=== PATIENT | female | born 1970 | race Caucasian/White ===

== ENCOUNTER 2019-08-30 09:59 | Outpatient (CLI) | payer MEDICAID, SELFPAY | END 2019-08-30 10:00 | disposition home or self-care (01) | LOC: RAD 09-01 09:37 | PROVIDERS: Family Provider Nurse Practitioner Family; Visit Provider Otolaryngology | DX: J32.9 Chronic sinusitis, unspecified (principal); J02.0 Streptococcal pharyngitis; J34.2 Deviated nasal septum; J34.3 Hypertrophy of nasal turbinates; E04.1 Nontoxic single thyroid nodule | CPT/HCPCS: 99203; 99214 ==

== ENCOUNTER 2019-10-10 07:44 | Outpatient (CLI) | payer MEDICAID, SELFPAY ==
--- NOTE | 2019-10-10 08:00 | US_ITS ---
WS: [id number] THYROID ULTRASOUND HISTORY: right thyroid nodule COMPARISON: None available. Cystic and solid. Right lobe: 6.1 cm x 1.6 cm x 2.3 cm. Volume: 12.1 cm3. Moderately enlarged thyroid gland. Mildly coarsened echotexture. There is a complex cystic nodule mid and lower pole anteriorly. Greater than 50% cystic but there are septations present throughout with no increased vascularity. This complex cystic nodule measures 2.7 x 1.7 x 2.2 cm. There is an additio nal solid nodule in the superior thyroid measuring 1.2 x 1.0 x 1.0 cm. Left lobe: 5.6 cm x 1.7 cm x 1.6 cm. Volume: 8.0 cm3. Slightly enlarged gland is heterogeneous. There is an ill-defined slightly hypoechoic nodule in the m id gland measures 1.3 x 1.0 x 0.7 cm. No increased vascularity. Additional complex cyst inferiorly me asures 7 x 6 x 6 mm. Isthmus: 0.3 cm. Superficial ovoid hypoechoic nodule with a maximum diameter 7 mm. US/US thyroid [id number] IMPRESSION: 1. Bilateral thyroid nodules. Nodules are combination of mixed cystic and tesha d. The largest in the RIGHT thyroid is predominantly cystic with a few septatio ns which are nonvascular. Recommend follow-up thyroid ultrasound in 6-12 months . If these nodules increase in size biopsy should be obtained. 2. Mild thyromegaly.
--- NOTE | 2019-10-10 09:45 | CT_ITS ---
WS: [id number] CT PARANASAL SINUSES HISTORY: chronic sinusitis TECHNIQUE: Contiguous 2.5 mm axial images obtained through the sinuses. Images are reconstructed in s agittal and coronal planes. All CT scans at [facility] use at least one of these dose opt imization techniques: automated exposure control; mA and/or kV adjustment per patient size (includes targeted exams where dose is matched to clinical indication); or iterative reconstruction. DLP: 369.34 mGycm COMPARISON: None available. Frontal sinuses: Normal. Sphenoid sinus: Well aerated. Small amount mucoperiosteal thickening in the far lateral LEFT sphenoid sinus. Ethmoid sinuses: Prominent RIGHT air cell along the anterior, inferomedial orbit consistent with Argueta er cell. Causing very mild narrowing and slight medial displacement of the infundibulum. Maxillary sinus: Normal. Ostiomeatal unit: Mild narrowing of the ostomy units bilaterally. A small amount of increased soft ti ssue along the infundibula bilaterally. Slight displacement of the RIGHT infundibulum of the Alyssa c ell. Nasal septum is straight and midline. Fovea ethmoidalis depth 6 mm. Gillian gala is midline. CT/CT sinus wo con* [id number] IMPRESSION: 1. Minimal mucoperiosteal thickening in the far lateral LEFT sphenoid sinus. 2. Mild narrowing of the ostiomeatal complexes bilaterally. 3. Prominent RIGHT Alyssa cell causing mild narrowing of the RIGHT infundibulu m.
== END 2019-10-10 07:45 | disposition home or self-care (01) ==
LOC: RADWPI 07:47
PROVIDERS: Family Provider Nurse Practitioner Family; PCP Nurse Practitioner Family; Visit Provider Otolaryngology
DX: J32.9 Chronic sinusitis, unspecified (principal); E04.2 Nontoxic multinodular goiter
CPT/HCPCS: 70486; 76536

== ENCOUNTER 2019-10-24 19:53 | Emergency (ER) | payer MEDICAID, SELFPAY ==
[2019-10-24 19:54] VITALS: BP 143/84; PULSE 70; RESP 18; TEMP 37.1; O2SAT 97; BMI 44.6
--- NOTE | 2019-10-24 20:06 | XR_ITS ---
WS: [id number] CHEST XRAY TECHNIQUE: Portable chest. CLINICAL INFORMATION: cough COMPARISON: November 21, 2018 FINDINGS: Heart: Normal cardiac silhouette. Lungs: Lungs are clear. No consolidation or pleural effusion. Bones: Thoracic curve convex right. XR/XR chest 1V portable [id number] IMPRESSION: No acute chest findings
--- NOTE | 2019-10-24 20:06 | ECG_ITS ---
Measurements Intervals [place] Rate: 70 P: 35 MO: 126 QRS: 43 QRSD: 89 T: 21 QT: 381 QTc: [address] & T-WAVE ABNORMALITY Compared to ECG 11/23/2018 12:08:46 T-wave abnormality now present Electronically Signed On 10-26-2019 6:38:17 CDT by Goran Cruz M.D. [id number]
[2019-10-24] MEDS: aspirin 81 mg Chew Tablet 324 MG PO (20:15)
--- NOTE | 2019-10-24 20:20 | W.ED.CHESTPA ---
HPI - Chest Pain General: Chief Complaint: Chest Pain Stated Complaint: CHEST PAIN Time Seen by Provider: 10/24/19 20:05 History of Present Illness: HPI narrative: Crissy is a 49-year-old female who comes in complaining of intermittent chest tightness for 1 month. She states for the past 2 days the squeezing in her chest is been constant. She denies any other associated symptoms with this such as shortness of breath, diaphoresis, nausea/vomiting, syncope or near syncope. She is unaware of any eliciting factors or exacerbating or alleviating factors. She states the pain is been intermittent but again for the past 2 days the pain has been constant. Because of that not going away is why she sought medical attention today. Associated symptoms: Deny abdominal pain, diaphoresis, dyspnea, fever(s), nausea, palpitations, syncope or vomiting Review of Systems General: Reports: other (negative unless marked) Const: Denies: fever, chills, body aches, fatigue, malaise or diaphoresis Eyes: Denies: change in vision or blurry vision ENMT: Denies: throat pain, painful swallowing, hoarseness, ear pain, ear discharge, Change in hearing or nasal discharge Card: Reports: chest pain; Denies: palpitations, irregular heart rhythm, syncope, pre-syncope, shortness of breath on exertion or shortness of breath when lying down Resp: Denies: shortness of breath, productive cough, non-productive cough, wheezing, coughing up blood or chest congestion GI: Denies: abdominal pain, nausea, vomiting, vomiting blood, coffee grounds in vomit, diarrhea, constipation, cramping, blood in stool or black tarry stool : Denies: flank pain, painful urination, urinary frequency, urinary urgency, decreased urine ouput, urinary incontinence or blood in urine Musc: Denies: neck pain, back pain, extremity pain, extremity swelling, joint pain, joint swelling, joint warmth or joint stiffness Skin/Breast: Denies: rash, skin tenderness or yellow skin Neuro: Denies: headache, numbness in extremities, weakness in extremities, changes in sensation, lack of coordination, difficulty walking, dizziness, vertigo or confusion Endo: Denies: excessive thirst, tired all the time, cold intolerance, excessive sweating, flushing or hot flashes David/Lymph: Denies: easy bruising, easy bleeding, petechiae or enlarged lymph nodes All/Imm: Denies: hives, throat swelling, tongue swelling, facial swelling or acute wheezing PFSH ED PFSH: Medical History Chronic sinusitis Deviated septum Generalized anxiety disorder Major depressive disorder, recurrent, moderate Nasal turbinate hypertrophy Obesity Right thyroid nodule Surgical History History of appendectomy History of hysterectomy Family History Father Hypertension Heart attack Mother Heart attack Brother Asthma Denies family history of Anesthesia complication Bleeding disorder Social History Smoking and tobacco status: former smoker Second hand smoke exposure: No Alcohol intake: never Adopted: No Caregiver/support person: Yes Lives independently: Yes Household members: spouse Housing: House Marital status: service: No Current occupational status: disabled Current occupational exposures/hazards: No Pets and animals: No History of recent travel: No Sexually active: Yes Current gender identity: Female Kellen/Presybeterian: Yazdanism Special kellen needs: No Agree to transfusion: No Financial difficulty paying for basics: Decline to Answer Physical Exam Const: COMMON NORMALS: no apparent distress, oriented x3, no limitations, healthy appearing and well nourished EXAM LIMITATIONS: no altered mental status GENERAL APPEARANCE: cooperative, well kempt and well developed ORIENTATION/CONSCIOUSNESS: Yes awake HENMT: COMMON NORMALS: normocephalic, head/scalp atraumatic, hearing grossly normal bilaterally, external ears normal, EAC's normal, external nose normal and moist oral mucous membranes HEAD & SCALP: normal to inspection, normocephalic and atraumatic FACE & SINUS: normal facial exam and face symmetric NOSE: external nose normal and nares normal EXTERNAL EAR: Yes external ears normal EXTERNAL AUDITORY CANAL: EAC's normal MOUTH: oral and palatal mucosa normal and tongue normal Eye: COMMON NORMALS: PERRL, EOMs intact bilaterally, conjunctivae normal and no scleral icterus GENERAL EYE: normal appearance of both eyes and normal light reflex CONJUNCTIVA: Yes conjunctivae normal SCLERA: sclerae normal CORNEA: Yes corneas normal PUPIL: Yes PERRL DIRECT OPHTHALMOSCOPY: Yes normal light reflex Neck/C-Spine: COMMON NORMALS: full ROM, no lymphadenopathy, supple, no meningeal signs and no JVD GENERAL: Yes normal visual inspection and Yes trachea midline CERVICAL SPINE: Yes cervical ROM normal Chest: COMMONS NORMALS: inspection of chest normal and palpation of chest normal Resp: COMMON NORMALS: normal respiratory effort, no retractions, no use of accessory muscles and clear to auscultation bilaterally EFFORT & INSPECTION: Yes able to speak in complete sentences AUSCULTATION: clear to auscultation bilaterally Cardio: COMMON NORMALS: no JVD, regular rate, regular rhythm, S1 normal heart sound, S2 normal heart sound, no gallops, no clicks, no murmurs and no rub JUGULAR VENOUS DISTENTION: no JVD RATE: regular rate RHYTHM: regular rhythm HEART SOUNDS: S1 normal and S2 normal GI: COMMON NORMALS: soft to palpation, non-tender, no hepatosplenomegaly and no masses INSPECTION: Yes normal to inspection PALPATION: Yes soft and Yes no hepatosplenomegaly : COMMON NORMALS: Yes no CVA tenderness BLADDER/KIDNEY EXAM: Yes no CVA tenderness Back/Pelvis: COMMON NORMALS: no CVA tenderness, thoracic and lumbar spine normal to inspection, no thoracic nor lumbar tenderness and thoraco-lumbar ROM normal Extremity: COMMON NORMALS: normal to inspection, full ROM, normal capillary refill, no joint enlargement, no clubbing, cyanosis or edema and no calf tenderness Neuro: COMMON NORMALS: oriented x3, CN's II-XII intact bilaterally, moves all extremities, no focal motor deficits and no sensory deficits noted MENINGEAL SIGNS: Yes no meningeal signs Psych: COMMON NORMALS: mental status grossly normal, thought process normal, cooperative, affect normal, speech normal and activity/motor behavior normal APPEARANCE: Yes well kempt SPEECH: Yes normal speech THOUGHT PROCESS: normal thought process Skin: COMMON NORMALS: no rashes or lesions noted, skin turgor normal, no jaundice, no petechiae and no mottling GENERAL SKIN EXAM: no rashes or lesions noted and turgor normal Course Vital Signs: Vital signs: Vital Signs Temperature 98.8 F 10/24/19 19:54 Pulse Rate 70 10/24/19 23:54 Respiratory Rate 16 10/24/19 23:54 Blood Pressure 119/60 10/24/19 23:54 Pulse Oximetry 97 10/24/19 23:54 MDM - Chest Pain MDM Narrative: Medical decision making narrative: Patient comes complaint of constant chest pain for the past 2 days. She has had intermittent pain like this for the past month. On repeat exam I can reproduce the pain to palpation to her chest. The patient is PERC rule negative. She is reassured and would like to go home. Her greatest concern was that of a heart attack but I see no evidence of this at this time. Patient agrees to follow-up with her regular doctor or return here if necessary. The patient believes that muscle relaxers help her chest pain more so than anything else. She has had this problem in the past now she admits. She states baclofen is not helping and ask for Flexeril. I have informed her to stop the baclofen while I give her the Flexeril and she agrees to do so. Lab Data: Attestation: I reviewed the patient's lab results. Labs: Lab Results 10/24/19 10/24/19 10/24/19 Range/Units 20:47 20:47 20:47 WBC 7.3 (4.0-10.0) 10^3/ uL RBC 4.83 (4.1-5.3) 10^6/u L Hgb 15.1 (11.5-15.3) g/dL Hct 45.8 (37.0-47.0) % MCV 94.8 (81-99) fL MCH 31.3 (28.0-34.0) pg MCHC 33.0 (30.0-36.0) g/dL RDW 11.9 L (12.1-15.1) % Plt Count 276 (130-400) 10^3/c mm MPV 9.8 (7.4-10.4) fL Neut % (Auto) 64.4 % Lymph % (Auto) 25.7 % [place] % (Auto) 6.8 % Eos % (Auto) 1.5 % Baso % (Auto) 0.8 % Neut # (Auto) 4.7 (1.8-7.7) 10^3/u L Lymph # (Auto) 1.9 (0.8-4.8) 10^3/u L [place] # (Auto) 0.5 (0.2-0.9) 10^3/u L Eos # (Auto) 0.1 (0.0-0.8) 10^3/u L Baso # (Auto) 0.1 (0.0-0.1) 10^3/u L Nucleated RBC % (a uto) 0 % Nucleated RBCs # 0.0 /100WBC PT 13.00 (10.5-13.3) SECO NDS INR 0.98 (0.8-1.2) Sodium 140 (136-145) mmol/L Potassium 4.2 (3.5-5.1) mmol/L Chloride 100 (98-107) mmol/L Carbon Dioxide 27 (22-29) mmol/L Anion Gap 17.2 (5-19) BUN 11 (6-20) mg/dL Creatinine 1.0 H (0.5-0.9) mg/dL GFR Calculation 59.2 L (90-130) mL/min Glucose 92 (65-115) mg/dL Calculated Osmolal ity 286 (285-295) mOsm/k g Calcium 9.6 (8.5-10.5) mg/dL Magnesium 1.9 (1.7-2.3) mg/dL Total Bilirubin 0.4 (0.15-1.2) mg/dL AST 23 (0-32) U/L ALT 36 H (0-33) U/L Alkaline Phosphata se 40 (35-105) IU/L Troponin T Baselin e (0-10) ng/mL Troponin T 120 Min [place] (0-10) ng/mL Delta Troponin T (0-10) ABS# Total Protein 7.4 (6.6-8.7) g/dL Albumin 4.3 (3.5-5.2) g/dL Globulin 3.1 (1.3-4.6) g/dL Lipase 21 (13-60) U/L Urine Color (Yellow) Urine Appearance (CLEAR) Urine pH (5-7) Ur Specific Gravit y (1.005-1.030) Urine Protein (Negative) Urine Glucose (UA) (Normal) Urine Ketones (Negative) Urine Blood (Negative) Urine Nitrate (Negative) Urine Bilirubin (NEGATIVE) Urine Urobilinogen (Negative) mg/dL Ur Leukocyte Patsy ase (Negative) Urine RBC (0-2) /hpf Urine WBC (0-5) /hpf Ur Squamous Epith Cells (0-5) Urine Bacteria (NONE) 10/24/19 10/24/19 10/24/19 Range/Units 20:47 20:50 22:40 WBC (4.0-10.0) 10^3/ uL RBC (4.1-5.3) 10^6/u L Hgb (11.5-15.3) g/dL Hct (37.0-47.0) % MCV (81-99) fL MCH (28.0-34.0) pg MCHC (30.0-36.0) g/dL RDW (12.1-15.1) % Plt Count (130-400) 10^3/c mm MPV (7.4-10.4) fL Neut % (Auto) % Lymph % (Auto) % [place] % (Auto) % Eos % (Auto) % Baso % (Auto) % Neut # (Auto) (1.8-7.7) 10^3/u L Lymph # (Auto) (0.8-4.8) 10^3/u L [place] # (Auto) (0.2-0.9) 10^3/u L Eos # (Auto) (0.0-0.8) 10^3/u L Baso # (Auto) (0.0-0.1) 10^3/u L Nucleated RBC % (a uto) % Nucleated RBCs # /100WBC PT (10.5-13.3) SECO NDS INR (0.8-1.2) Sodium (136-145) mmol/L Potassium (3.5-5.1) mmol/L Chloride (98-107) mmol/L Carbon Dioxide (22-29) mmol/L Anion Gap (5-19) BUN (6-20) mg/dL Creatinine (0.5-0.9) mg/dL GFR Calculation (90-130) mL/min Glucose (65-115) mg/dL Calculated Osmolal ity (285-295) mOsm/k g Calcium (8.5-10.5) mg/dL Magnesium (1.7-2.3) mg/dL Total Bilirubin (0.15-1.2) mg/dL AST (0-32) U/L ALT (0-33) U/L Alkaline Phosphata se (35-105) IU/L Troponin T Baselin e 6 (0-10) ng/mL Troponin T 120 Min [place] 6.00 (0-10) ng/mL Delta Troponin T 0 (0-10) ABS# Total Protein (6.6-8.7) g/dL Albumin (3.5-5.2) g/dL Globulin (1.3-4.6) g/dL Lipase (13-60) U/L Urine Color Yellow (Yellow) Urine Appearance Hazy A (CLEAR) Urine pH 5 (5-7) Ur Specific Gravit y 1.010 (1.005-1.030) Urine Protein Neg (Negative) Urine Glucose (UA) Norm (Normal) Urine Ketones Negative (Negative) Urine Blood Neg (Negative) Urine Nitrate Negative (Negative) Urine Bilirubin Neg (NEGATIVE) Urine Urobilinogen Norm (Negative) mg/dL Ur Leukocyte Patsy ase Negative (Negative) Urine RBC 0-4 H (0-2) /hpf Urine WBC 0-4 H (0-5) /hpf Ur Squamous Epith Cells 10-15 H (0-5) Urine Bacteria 1+ H (NONE) Imaging Data^: CXR: My impression: No acute cardiopulmonary findings. EKG Data^: EKG 1: Attestation: I personally reviewed and interpreted this EKG as follows: EKG interpretation date: 10/24/19 EKG interpretation time: 19:59 Interpretation: Normal sinus rhythm at 70 beats a minute, baseline wandering artifact, no acute ST or T wave changes. EKG 2: Attestation: I personally reviewed and interpreted this EKG as follows: EKG interpretation date: 10/24/19 EKG interpretation time: 20:50 Interpretation: Normal sinus rhythm at 68 beats a minute, no acute ST or T wave changes. Normal intervals, no blocks. EKG 3: Attestation: I personally reviewed and interpreted this EKG as follows: EKG interpretation date: 10/24/19 EKG interpretation time: 22:44 Interpretation: Normal sinus rhythm at 65 beats a minute, no acute ST or T wave changes. EKG 4: Attestation: I personally reviewed and interpreted this EKG as follows: EKG interpretation date: 10/24/19 EKG interpretation time: 22:44 Interpretation: Normal sinus rhythm at 65 beats a minute, no acute ST or T wave changes. Discharge Plan Discharge Patient Disposition: Home, Self-Care Clinical Impression: Costalchondritis Chest pain Qualifiers: Chest pain type: unspecified Qualified Code(s): R07.9 - Chest pain, unspecified Condition: Stable Prescriptions: New cyclobenzaprine 10 mg tablet 10 mg PO TID PRN (Reason: muscle spasm) Qty: 30 RF: 0 No Action simvastatin 40 mg tablet 40 mg PO QDAY RF: 0 baclofen 20 mg tablet 20 mg PO .up to 2 daily RF: 0 tramadol 50 mg tablet 50 mg PO BID PRN (Reason: Pain) RF: 0 gabapentin 300 mg capsule 300 mg PO BID Qty: 60 RF: 3 hydroxyzine pamoate [Vistaril] 50 mg capsule 50 mg PO .one to two bedtime Qty: 60 RF: 3 clonazepam [Klonopin] 1 mg tablet 1 mg PO BID PRN (Reason: anxiety) Qty: 60 RF: 3 ergocalciferol (vitamin D2) 1,250 mcg (50,000 unit) capsule 1,250 mcg PO .weekly RF: 0 Tylenol 325 mg Tablet 325 mg PO QID PRN (Reason: Pain) RF: 0 ibuprofen 200 mg Tablet 200 mg PO Q6H PRN (Reason: Pain) RF: 0 Discharge Orders: Discharge Order (Routine); Ordered 10/24/19 Ordered By: Agnieszka Conrad Referrals: Alana Olivia DNP [Family Provider] - Asia Mcdaniels NP [Primary Care Provider] - 1-3 days Discharge Diet: Advance as tolerated Discharge Activity: Increase activity as tolerated Patient Instructions: Chest Pain (ED), Costochondritis (ED) Activity Restrictions/Additional Instructions: Please return to the ER immediately for any of the signs or symptoms listed on your discharge instruction sheets, worsening/changing of your symptoms, you are not getting better as quickly as expected, or for ANY other cause or concerns. Stop taking your baclofen if you take the Flexeril I have prescribed you. Try [id number] Tylenol Motrin for your pain as well. Return to the ER for any of the reasons listed on your discharge instruction sheets, return of your pain, or for any other cause for concern. Discharge Date/Time: 10/24/19 23:50 Coding Level of Care Code ED Endoscopy Rn for Jayne Fwd Exam Comprehensive
[2019-10-24] MEDS: ondansetron 2 mg/ML SDV 2 mL 4 MG IVP (20:48)
[2019-10-24 20:50] VITALS: RESP 18; O2SAT 95
[2019-10-24] MEDS: morphine 4 mg/mL SDV 1 mL IVP (20:50)
[2019-10-24 20:58] VITALS: BP 123/64; PULSE 69; RESP 18; O2SAT 95
[2019-10-24 21:25] LABS: Basophils # 0.1 10^3/uL (0.0-0.1); Basophils % 0.8 %; Eosinophils # 0.1 10^3/uL (0.0-0.8); Eosinophils % 1.5 %; Hematocrit 45.8 % (37.0-47.0); Hemoglobin 15.1 g/dL (11.5-15.3); Lymphocytes # 1.9 10^3/uL (0.8-4.8); Lymphocytes % 25.7 %; Mean Corpuscular Hemoglobin 31.3 pg (28.0-34.0); Mean Corpuscular Volume 94.8 fL (81-99); Mean Platelet Volume 9.8 fL (7.4-10.4); Monocytes # 0.5 10^3/uL (0.2-0.9); Monocytes % 6.8 %; Neutrophils # 4.7 10^3/uL (1.8-7.7); Neutrophils % 64.4 %; Nucleated Red Blood Cells % 0 %; Platelet Count 276 10^3/cmm (130-400); Red Blood Count 4.83 10^6/uL (4.1-5.3); Red Cell Distribution Width 11.9 % (12.1-15.1); White Blood Count 7.3 10^3/uL (4.0-10.0)
[2019-10-24 21:58] LABS: Bilirubin Urine Neg (NEGATIVE); Blood Urine Neg (Negative); Glucose Urine UA Norm (Normal); Ketones Urine Negative (Negative); Leukocyte Esterase Urine Negative (Negative); Nitrate Urine Negative (Negative); Protein Urine Neg (Negative); Urine Appearance Hazy (CLEAR); Urine Color Yellow (Yellow); Urobilinogen Urine Norm (Negative); pH Urine 5 (5-7)
[2019-10-24 21:59] LABS: Alanine Aminotransferase 36 U/L (0-33); Albumin Level 4.3 g/dL (3.5-5.2); Alkaline Phosphatase 40 IU/L (35-105); Anion Gap 17.2 (5-19); Aspartate Amino Transferase 23 U/L (0-32); Blood Urea Nitrogen 11 mg/dL (6-20); Calcium 9.6 mg/dL (8.5-10.5); Carbon Dioxide 27 mmol/L (22-29); Chloride 100 mmol/L (98-107); Globulin 3.1 g/dL (1.3-4.6); Glomerular Filtration Rate 59.2 mL/min (90-130); Glucose 92 mg/dL (65-115); Lipase 21 U/L (13-60); Magnesium 1.9 mg/dL (1.7-2.3); Osmolality Calculated 286 mOsm/kg (285-295); Potassium 4.2 mmol/L (3.5-5.1); Sodium 140 mmol/L (136-145); Total Bilirubin 0.4 mg/dL (0.15-1.2); Total Protein 7.4 g/dL (6.6-8.7)
[2019-10-24 22:01] LABS: Troponin(5th) Baseline 6 ng/mL (0-10)
[2019-10-24 22:03] LABS: INR 0.98 (0.8-1.2)
[2019-10-24 22:05] LABS: RBC Urine 0-4 /hpf (0-2); WBC Urine 0-4 /hpf (0-5)
[2019-10-24 22:06] LABS: Bacteria Urine 1+
--- NOTE | 2019-10-24 22:06 | ECG_ITS ---
Measurements Intervals [place] Rate: 65 P: 21 PA: 152 QRS: 44 QRSD: 89 T: 29 QT: 393 QTc: 411 SINUS RHYTHM Compared to ECG 11/23/2018 12:08:46 No significant changes Electronically Signed On 10-26-2019 6:44:21 CDT by Goran Cruz M.D. [id number]
[2019-10-24 23:03] LABS: Troponin 5 2HR Delta 0 ABS# (0-10)
[2019-10-24 23:54] VITALS: BP 119/60; PULSE 70; RESP 16; O2SAT 97
== END 2019-10-24 23:50 | disposition home or self-care (01) ==
PROVIDERS: Emergency Provider Emergency Medicine; Family Provider Nurse Practitioner Family; PCP Nurse Practitioner Family
DX: M94.0 Chondrocostal junction syndrome [Tietze] (principal); Z87.891 Personal history of nicotine dependence
CPT/HCPCS: 12345; 71045; 80053; 81001; 83690; 83735; 84484; 85025; 85610; 93005; 96374; 96375; 99283; 99284; J2270; J2405

== ENCOUNTER 2019-11-16 07:38 | Outpatient (CLI) | payer MEDICAID, SELFPAY ==
--- NOTE | 2019-11-16 08:00 | MM_ITS ---
WS: [id number] BILATERAL DIGITAL SCREENING MAMMOGRAPHY WITH CAD CLINICAL INFORMATION: SCREEN HISTORY: Screening mammogram. Left breast soreness COMPARISON: None. TECHNIQUE: Bilateral CC and MLO views. FINDINGS: Scattered fibroglandular densities bilaterally. No suspicious focal mass, asymmetry, calcifications, or architectural distortion. No evidence of malignancy. MM/[place] [id number] IMPRESSION: BI-RADS: 2-Benign FOLLOW UP: 1 Year Follow-up Recommend return to annual screening mammography.
== END 2019-11-16 07:39 | disposition home or self-care (01) ==
LOC: RADSHAW 07:42
PROVIDERS: PCP Nurse Practitioner Family; Visit Provider Nurse Practitioner Family
DX: Z12.31 Encounter for screening mammogram for malignant neoplasm of breast (principal)
CPT/HCPCS: 77067

== ENCOUNTER 2019-11-29 08:53 | Outpatient (CLI) | payer MEDICAID, SELFPAY ==
--- NOTE | 2019-11-29 09:02 | XR_ITS ---
WS: [id number] CERVICAL SPINE FLEXION EXTENSION TECHNIQUE: 3 views of the cervical spine: lateral neutral, flexion and extension views. CLINICAL INFORMATION: cervical pain COMPARISON: April 04, 2019 FINDINGS: Straightening of the normal cervical lordosis. Anterior hypertrophic changes C5-C7 with disc space na rrowing at these levels. Normal prevertebral soft tissues. Normal C1-2 articulation. No instability o n flexion-extension. Posterior elements are normal. No other significant findings. XR/XR cervical spine fl/ex [id number] IMPRESSION: 1. Straightening of the normal cervical lordosis with moderate spondylitic theresa nges at C5-C6 and C6-C7. 2. No instability on flexion-extension.
--- NOTE | 2019-11-29 09:05 | MR_ITS ---
WS: [id number] MRI CERVICAL SPINE NONCONTRAST TECHNIQUE: Sagittal T1, T2 and STIR imaging. Axial T2, gradient, and fiesta imaging. CLINICAL INFORMATION: cervical pain COMPARISON: MRI April 04, 2019 FINDINGS: Straightening of the normal cervical lordosis. Disc osteophyte complexes more prominent at C5-C6 and C6-C7. Cord signal is normal. Disc space narrowing worse at C6-C7 with endplate-type changes. C2-C3: Normal. C3-C4: Mild disc bulging and osteophytic ridging. Mild facet arthropathy. Spinal canal and foramen ar e patent. C4-C5: Disc osteophyte complex with endplate ridging. Mild left and no significant right foraminal na rrowing. Mild facet arthropathy. Spinal canal is patent. C5-C6: Disc osteophyte complex with endplate ridging. Right pericentral disc osteophyte protrusion. M oderate left and mild right bony foraminal narrowing. C6-C7: Disc osteophyte complex with endplate ridging. Right pericentral disc osteophyte protrusion. M ild to moderate central canal stenosis. Moderate left and mild right foraminal narrowing. C7-T1: Minimal disc bulging with Osteophytic ridging with mild bilateral foraminal narrowing. Spinal canal is patent. Visualized brain stem structures: Normal. Prevertebral soft tissues: Normal. MR/MR cervical spin wo con* [id number] IMPRESSION: 1. Straightening of the normal cervical lordosis with spondylitic changes wors e at C5-C6 and C6-C7. 2. Mild central canal stenosis C5-C6 and mild to moderate central canal stenos is at C6-C7 is unchanged. 3. Moderate bony foraminal narrowing more prominent at left C5-C6 and left C6- C7. 4. Overall no significant changes since January 02, 2019.
== END 2019-11-29 08:54 | disposition home or self-care (01) ==
PROVIDERS: PCP Nurse Practitioner Family; Visit Provider Specialist
DX: M54.2 Cervicalgia (principal); M48.02 Spinal stenosis, cervical region
CPT/HCPCS: 72040; 72141

== ENCOUNTER 2020-01-08 15:46 | Observation (INO) | payer MEDICAID, SELFPAY ==
[2020-01-04 10:41] VITALS: BMI 44.1
--- NOTE | 2020-01-04 12:10 | P.ANESASSM_ITS ---
Pre-Anesthetic Assessment Pre-Anesthetic Assessment: Height/Weight: Height 1.73 m Weight 131.542 kg Preop Diagnosis: DJD Proposed Procedure: Operation Date: 01/08/20 07:30 Proposed Procedures p Anterior Cervical Discecotmy&Fusion 2Lev/C5-C6 C6-C7 [id number] M50.020(Not Applicable) - Saúl Collazo MD Familial anesthetic complications: none Social: Social History: No alcohol and No tobacco Comment: former smoker Exam: Pre-Anes Outpt Exam: alert, oriented x 3, clear to auscultation bilaterally and regular rate & rhythm Airway: Cervical ROM: WNL (Limited extension) MP: 1 Dentition: Chipped Pulmonary: Pulmonary: Sleep apnea (cpap) Hepatic: Comments: fatty liver GI: GI: GERD Metabolic: Metabolic: Morbid obesity Musc/skel: Musc/skel: Lower Back Pain Neuropsych: Neuropsych: Anxiety Anesthetic Plan: ASA status: 2 Anesthesia: General Risk of > 500 ml blood loss (7ml/kg in children): No PFSH Anesthesia PFSH: Medical History Cervical disc disorder with myelopathy of mid-cervical region Chronic sinusitis Deviated septum Generalized anxiety disorder Major depressive disorder, recurrent, moderate Nasal turbinate hypertrophy Obesity Right thyroid nodule Spondylolisthesis of cervical region Surgical History (Updated 01/04/20 @ 10:38 by Cathleen Hanks RN) History of appendectomy History of hysterectomy Family History Father Hypertension Heart attack Mother Heart attack Brother Asthma Denies family history of Anesthesia complication Bleeding disorder Social History (Updated 11/30/19 @ 13:19 by Mary Marino LPN) Smoking and tobacco status: former smoker Alcohol intake: never Lives independently: Yes Household members: spouse Housing: House Marital status: Current occupational status: disabled History of recent travel: No Current gender identity: Female Kellen/Restorationist: Yazidism Data Anesthesia Cardiac Studies: No Data to Display
[2020-01-08] VITALS (15 sets, daily range): BP systolic 131–167; BP diastolic 71–117; PULSE 67–97; RESP 14–20; TEMP 36.6–36.8; O2SAT 90–96
--- NOTE | 2020-01-08 11:12 | P.HPUD_ITS ---
Surgery/Procedure H&P Update DATE OF PROCEDURE: January 08, 2020 DATE H&P PERFORMED: 12/29/19 H&P UPDATE INFORMATION: I have reviewed H&P completed within last 30 days, Changes to prior documentation as noted here (Patient evaluated by Anesthesia after PCP visit.), H&P to be scanned into chart and H[place] is in [facility] [place] indicated PREOP DIAGNOSIS: Intervertebral disc disorder with myelopathy, mid cervical region PRIMARY INDICATION FOR PROCEDURE: Pain PLANNED PROCEDURE: Operation Date: 01/08/20 12:30 Proposed Procedures C5-C7 Anterior Cervical Discectomy/Fusion/Fixation
--- NOTE | 2020-01-08 11:28 | SUR.PHASEI ---
PHYSICAL THERAPIST IN ROOM TO FIT COLLAR.
--- NOTE | 2020-01-08 11:57 | P.OP_ITS ---
Brief Operative Note: Date of procedure: 01/08/20 Pre-op diagnosis: Intervertebral disc disorder with myelopathy, midcervical Post-op diagnosis: same (with instability of joint) Procedure Done: C5-C7 ACDFF Surgeon: Saúl Collazo Estimated blood loss (mL): 50 Complications: None. Post-op Plan: PACU, then surgical pfeiffer. Condition: stable Disposition: PACU Coding Level of Care Code Acute Consumer Insight Analyst for Jayne Newman
[2020-01-08] MEDS: sodium chloride 0.9% 1,000 ML 30 ML IV (12:00)
[2020-01-08] MEDS: ceFAZolin 3,000 MG in sodium chloride 0.9% (100 ml) 100 ML 200 MG IV (12:11)
--- NOTE | 2020-01-08 12:33 | XRR_ITS ---
PROCEDURE INFORMATION: Exam: XR Spine, 1 view; Cervical Exam date and time: 01/08/2020 12:38 PM Age: 49 years old Clinical indication: Device placement; Other: Surgery images; Prior surgery; Surgery type: Operative images TECHNIQUE: Imaging protocol: XR of the spine, 1 view. Exam focused on the cervical spine. COMPARISON: CR XR cervical spine fl/ex [id number] 11/29/2019 9:50 AM FINDINGS: Tubes, catheters and devices: Endotracheal tube Vertebrae: Alignment is normal. posterior vertebral line and the spinal laminar line normal odontoid process limited characterization no fracture Degenerative disc disease C5-C6 and likely C6-C7. Other findings: Surgical probe/needle anterior to the inferior aspect of C5. XR/XR cervical spine 1Vport [id number] IMPRESSION: 1. Degenerative disc disease C5-C6 and likely C6-C7. 2. Surgical probe/needle anterior to the inferior aspect of C5.
--- NOTE | 2020-01-08 13:06 | XRR_ITS ---
PROCEDURE INFORMATION: Exam: XR Spine, 1 view; Cervical Exam date and time: 01/08/2020 1:20 PM Age: 49 years old Clinical indication: Screening exam; Exam type: Operative images; Prior surgery; Surgery date: Post-operative (0-2 days) TECHNIQUE: Imaging protocol: XR of the spine, 1 view. Exam focused on the cervical spine. COMPARISON: CR XR cervical spine 1ort [id number] 01/08/2020 12:47 PM FINDINGS: Vertebrae: Lateral view of the cervical spine. Degenerative disc disease most pronounced C5-C6. Soft tissue spreaders centered about C6 and C7. Apparent probe at the inferior aspect of C5. Soft tissues: See Vertebrae finding. XR/XR cervical spine 1Vport [id number] IMPRESSION: Lateral view of the cervical spine. Degenerative disc disease most pronounced C5-C6. Soft tissue spreaders centered about C6 and C7. Apparent probe at the inferior aspect of C5.
[2020-01-08] MEDS: thrombin 5,000 unit SDV 5000 UNIT XX (13:08)
--- NOTE | 2020-01-08 15:20 | XRR_ITS ---
PROCEDURE INFORMATION: Exam: XR Cervical Spine, 2 or 3 Views Exam date and time: 01/08/2020 3:58 PM Age: 49 years old Clinical indication: Device placement; Other: Fusion; Prior surgery; Surgery date: Post-operative (0-2 days); Additional info: Ap/lat post op fusion TECHNIQUE: Imaging protocol: XR of the cervical spine, 2 or 3 views. COMPARISON: CR XR cervical spine 1Vport [id number] 01/08/2020 1:27 PM FINDINGS: Vertebrae: Metallic plate and screws are seen in the anterior aspect of the cervical spine anterior to C5-C6 and C7.. No acute fracture. There is loss of cervical lordosis consistent with presence of orthopedic hardware. Soft tissues: Unremarkable. XR/XR cervical spine 3V* [id number] IMPRESSION: 1. No acute bone abnormality. 2. Metallic plate and screws anterior to the lower cervical spine
[2020-01-08] MEDS: fentaNYL 50 mcg/mL INJ 2mL IVP ×2 (15:42→15:47)
--- NOTE | 2020-01-08 15:52 | SUR.PHASEI ---
1553 PT HAS SENSATION/MOVEMENT IN ALL EXTREMITIES
--- NOTE | 2020-01-08 16:21 | P.OP_ITS ---
Operative Report Date of procedure: January 08, 2020 Pre-op Diagnosis: Intervertebral disc disorder with myelopathy, mid cervical region Post-op diagnosis: same (with instability of joint) Procedure Done: C5-C6, C6-C7 anterior cervical discectomy/osteophytectomy. C5-C6, C6-C7 anterior plate-screw fixation. Placement of C5-C6 and C6-C7 intervertebral prosthetic devices. C5-C6, C6-C7 anterior fusion utilizing morselized autograft obtained from the osteophytectomy portion of the procedure. Implants: Depuy-Mimvi ACIS ProTi Spacers. Synthes Vectra plate/screw fixation construct. Specimens removed/disposition: C5-C6 and C6-C7 disc. Pathology: Disc fragments Surgeon: Saúl Collazo Anesthesia: General Estimated blood loss (mL): 50 IV fluids (mL): 2,000 Urine output (mL): 150 Complications: None Condition: stable Disposition: PACU Brief History: The patient is a 49-year-old female with symptomatic, radiographically confirmed cervical disc/joint disease and associated neural impingement. She complained of neck pain and primarily left shoulder/upper extremity symptoms. She obtained only transient benefit with a pain clinic interventional treatment trial. After review of the diagnostic and treatment options with the risks/potential benefits/rationale for each, she requested to proceed with surgical intervention. Procedure: After routine preoperative evaluation and informed consent were obtained, the patient was taken to the Operating Room and placed under general endotracheal anesthesia. She was positioned supine and fit in the [place] tongs for the application of in-line cervical traction. The anterolateral neck on the left was prepared with hair clippers. A proposed transverse skin incision was marked with a sterile skin marker, utilizing intraoperative radiography and regional anatomy for localization. The area was scrubbed with Betadine, prepped with DuraPrep, and draped with sterile towels and drapes. [place] surgical barrier was applied. The proposed incision site was infiltrated with 1% Xylocaine with Epinephrine. A skin incision was made and carried down into the subcutaneous tissues. The platysma was identified and divided in the direction of its fibers. A plane was dissected just medial to the carotid sheath and lateral to the midline esophagus and trachea. Prevertebral soft tissues were bluntly dissected free of the anterior margin of the cervical spine. Longus coli muscles were freed from their medial attachments. Deep self-retaining retractors were placed. Intraoperative radiography verified the desired surgical levels. The C5-C6 and C6-C7 interspaces were sequentially incised with a #11 blade. Discectomies were accomplished utilizing various curettes and pituitary rongeurs. Anterior marginal osteophytes were resected with the [place] and [place] rongeurs. Cartilaginous end plates were stripped free with curettes. Posterior marginal osteophytes were resected with thin foot plate [place] rongeurs. The medial aspects of the neural foramina were enlarged in a similar manner. Posterior longitudinal ligament was divided and resected as necessary to further the decompression. Due to extensive bony overgrowth of the disc space and marginal osteophyte contribution to neural impingement, the Keen[employer]im high-speed drill with donal cachorro was utilized to complete the osteophytectomy portions of the procedure and for endplate preparation. Once the decompressions were felt to be adequate at both levels, the disc spaces were sized. A 7 mm ACIS ProTi medium/lordotic Spacer was chosen for C5-C6. A 7 mm ACIS ProTi medium/lordotic Spacer was also chosen for C6-C7. The Spacers were packed with morselized autograft obtained from the osteophytectomy portions of the procedure. The Spacers were sequentially placed within the C5-C6 and C6-C7 interspaces while in-line cervical traction was applied via the [place] tongs. Once the Spacers were felt to be in good position, a Synthes Vectra plate of the desired size was chosen. The plate was bent to match the curvature of the patient's cervical spine utilizing the plate lowe. The plate was secured to the C5, C6 and C7 vertebral bodies with bilateral 4 mm x 14 mm self-drilling screws. Final screw tightening was performed, and the locking mechanisms within the plate were noted to engage the screws at each site. The construct was inspected and felt to be in good position and secure. The wound was copiously irrigated with sterile saline and antibiotic irrigation. Hemostasis was ensured with the bipolar electrocautery. Wound closure was performed in multiple layers with 2-0 Vicryl Plus simple interrupted closure of the platysma and deep dermis as separate layers. Final skin closure was performed with 4-0 Vicryl Plus in a running subcuticular pattern. Steri-Strips were applied and a sterile dressing was placed. The patient was released from the [place] tongs and fit in a [place] collar. She was transferred onto the Recovery Room cart in the supi ne position. She was extubated without incident. The patient tolerated the procedure well. All sponge, needle, and instrument counts were correct at the completion of the procedure.
--- NOTE | 2020-01-08 16:40 | SUR.PHASEI ---
1605 PT C/O 10/10 PAIN, VITAL SIGNS WITHIN NORMAL LIMITS, PT APPEARS TO BE 4/10 FACES PAIN SCALE
[2020-01-08] MEDS: ketorolac 30 mg/mL INJ IVP ×2 (17:00→23:13)
[2020-01-08] MEDS: sodium chloride 0.9% SDV 10 mL 20 ML (17:01)
[2020-01-08] MEDS: cetylpyridinium Lozenge 1 EACH MUCOUS MEM (17:01)
[2020-01-08] MEDS: lactated ringers 1,000 ML 90 ML IV (17:06)
--- NOTE | 2020-01-08 17:43 | PC.PT ---
PT note; fit [place] J collar to patient's satisfaction in presence of nursing, instructed nursing in minor adjustments of needed, patient nursing and no further questions, patient unable to participate with post spine protocol at this time, will instruct patient in same in morning.
[2020-01-08] MEDS: gabapentin 300 mg Capsule PO (21:34)
[2020-01-08] MEDS: HYDROcodone-acetaminophen 7.5-325 mg Tablet PO (21:34)
[2020-01-08] MEDS: docusate sodium 100 mg Capsule PO (21:35)
[2020-01-08] MEDS: CLONazepam 1 mg Tablet PO (21:40)
[2020-01-09] VITALS: BP 149/79; PULSE 79; RESP 18; TEMP 36.8; O2SAT 95
[2020-01-09] MEDS: HYDROcodone-acetaminophen 7.5-325 mg Tablet PO ×2 (01:29→16:08)
[2020-01-09 04:00] VITALS: BP 149/86; PULSE 76; RESP 18; TEMP 36.8; O2SAT 93
[2020-01-09] MEDS: lactated ringers 1,000 ML 90 ML IV (05:12)
[2020-01-09] MEDS: ketorolac 30 mg/mL INJ IVP ×2 (05:24→12:40)
[2020-01-09 07:28] VITALS: BP 167/95; PULSE 72; RESP 18; TEMP 36.8; O2SAT 97
[2020-01-09] MEDS: acetaminophen 325 mg Tablet 650 MG PO (08:45)
[2020-01-09] MEDS: gabapentin 300 mg Capsule PO ×2 (08:46→16:08)
[2020-01-09] MEDS: docusate sodium 100 mg Capsule PO (08:46)
[2020-01-09] MEDS: cholecalciferol (vitamin D3) 5,000 unit Tablet 5000 UNIT PO (08:46)
[2020-01-09] MEDS: baclofen 10 mg Tablet 20 MG PO (08:50)
[2020-01-09] MEDS: CLONazepam 1 mg Tablet PO (08:52)
[2020-01-09 10:49] VITALS: BP 163/87; PULSE 71; RESP 18; TEMP 36.3; O2SAT 98
--- NOTE | 2020-01-09 11:56 | PC.CHAP ---
Pastoral Care Encounter/Spiritual Assessment Type of Contact [] Declined oyster unloader visit [] Patient/Family/Request visit [] Outpatient visit [] Follow-up visit [] Physician referral [] Code/Alert [x] Routine visit [] Staff referral [] Actively dying [] Patient sleeping [] Family support [] [] Out of room [] Palliative care [] [x] Receiving care in room [] Pre-surgical visit [] Trauma [] Long length of stay [] ICU visit [] Other: Relational/Emotional Strength [x] Patient feels connected with others/family/visitors/staff [] Distress [] Loneliness/isolation [] Abandonment Spirituality of Patient [x] Person of Kellen [] Attends Yarsani of their Kellen [x] Believes in Prayer [] Reads Bible or Anabaptism materials [] There are Spiritual issues to be addressed Aluminum Siding Mechanic Interventions [x] Prayer [x] Active listening [x] Non-anxious presence [x] Spiritual/emotional support [] Crisis/trauma care [x] Spiritual counseling [] Bereavement support [] Provided bereavement packet [] Provided Bible/devotional materials [] Provided toy/stuffed animal, coloring book to patient or family member [] Provided Communion [] Anointing/[place] [] Salvation [x] Completed spiritual assessment [] Other: Impact on Illness or Injury [] Angry [] Fearful [] Anxious [] Often cries [] Exhaustion [] Unable to work [] Unable to attend hindu [] Unable to walk/stand [] Unable to read [] Unable to drive [] Unable to eat/drink [] Unable to sleep [] Unable to be with family [] Patient intubated [] Other: Summary C section in throught 8 weeks before she eat, Has a great attitude, lookiung for warding to going home Time spent with patient 10 mins
[2020-01-09 15:29] VITALS: BP 156/95
[2020-01-09 18:02] VITALS: BP 156/95
--- NOTE | 2020-01-09 18:50 | PM.DCS ---
Discharge Providers Date of Admission: 01/08/20 15:46 Date of Discharge: January 09, 2020 Attending Provider at Admission: Saúl Collazo MD Attending Provider at Discharge: Saúl Collazo MD Primary Care Provider: Asia Mcdaniels Diagnoses at Discharge Discharge Diagnosis (1) Cervical disc disorder with myelopathy of mid-cervical region: Status: Chronic (2) S/P cervical spinal fusion: Status: Acute Problem details: 01/08/20, C5-C7 ACDFF, Dr Collazo Reason for Visit Reason for Visit: Cervical disc disorder with myelopathy of mid cerv Brief History: The patient is a 49-year-old female with symptomatic, radiographically confirmed cervical disc/joint disease and associated neural impingement. She complained of neck pain and primarily left shoulder/upper extremity symptoms. She obtained only transient benefit with a pain clinic interventional treatment trial. After review of the diagnostic and treatment options with the risks/potential benefits/rationale for each, she requested to proceed with surgical intervention. Hospital Course Hospital Course: The patient underwent C5-C6, C6-C7 ACDFF on 01/08/2020. She tolerated the procedure well. She had chronic/preoperative issues with pain and spasms. She complained of postop pain/spasm exacerbation, and opted to spend the night after surgery. She completed perioperative intravenous antibiotics, and the physical therapy postoperative spine protocol. She was ambulatory, voiding, and tolerating oral intake prior to discharge home on postoperative day #1. Physical Exam Const: COMMON NORMALS: no acute distress GENERAL APPEARANCE: cooperative NUTRITIONAL APPEARANCE: obese Neck/C-Spine: CERVICAL SPINE: Yes collar present Resp: COMMON NORMALS: normal respiratory effort EFFORT & INSPECTION: Yes able to speak in complete sentences and No tachypneic Neuro: COMMON NORMALS: moves all extremities GAIT: Yes Other gait observations present (ambulatory) Psych: COMMON NORMALS: speech normal ATTITUDE: Yes engaged ACTIVITY/MOTOR BEHAVIOR: Yes appropriate eye contact SPEECH: Yes normal speech MOOD & AFFECT: Yes anxious ATTENTION/CONCENTRATION: Yes attention grossly intact Skin: WOUNDS: Yes surgical site (Left anterolateral neck surgical site dressing clean/dry/intact.) Urinary Catheter Management^: Benitez: Cath Placed During This Visit: yes Urinary Catheter Date of Insertion: 01/08/20 Urinary Catheter Time of Insertion: 12:25 Discharge Data Data Completed and Pending: Completed Studies During Hospitalization Category Date Time Status XR cervical spine 1 view portable [ XR cervical spine Exams 01/08/20 13:06 Completed 1Vport [id number]] Rou marysol XR cervical spine 1Vport [id number] Rout ine Exams 01/08/20 12:33 Completed XR cervical spine 3V* [id number] Routine Exams 01/08/20 15:20 Completed Pathology: Surgic al [PTH] Routine Pth 01/08/20 15:36 Completed Imaging^: Other Xray: Radiologist's impression: 1. No acute bone abnormality. 2. Metallic plate and screws anterior to the lower cervical spine Procedures Performed: C5-C6, C6-C7 anterior cervical discectomy/fusion/fixation. Intravenous antibiotics. Physical therapy. Vitals: Last Vital Signs Temp 97.4 F L 01/09/20 10:49 Pulse 71 01/09/20 10:49 Resp 18 01/09/20 10:49 BP 156/95 01/09/20 18:02 Pulse Ox 98 01/09/20 10:49 Discharge Plan Discharge Patient Disposition: Home, Self-Care Condition: Stable Prescriptions: New hydrocodone-acetaminophen [[place]] 10-325 mg tablet 1 tab PO Q4H MDD 5 tabs PRN (Reason: pain) Qty: 30 RF: 0 Continued baclofen 20 mg tablet 20 mg PO .up to 2 daily RF: 0 gabapentin 300 mg capsule 300 mg PO TID Qty: 90 RF: 3 hydroxyzine pamoate [Vistaril] 50 mg capsule 50 mg PO .one to two bedtime Qty: 60 RF: 3 cholecalciferol (vitamin D3) [Vitamin D3] 125 mcg (5,000 unit) Tablet 125 mcg PO DAILY RF: 0 Held hydrocodone-acetaminophen [[place]] 5-325 mg tablet 1 tab PO BID PRN (Reason: Pain) RF: 0 Hold Instructions: Resume on 01/15/20. Hold while taking postop Rx. No Action Klonopin 1 mg tablet 1 mg PO BID RF: 0 Discharge Orders: Discharge Order (Routine); Ordered 01/09/20 Ordered By: Saúl Collazo Referrals: Saúl Collazo MD [Physician] - 01/25/20 10:00 am (AP/lateral c-spine x-rays prior to visit.[facility] BEFORE APPOINTMENT ON WEDNESDAY ) Discharge Diet: Advance as tolerated Discharge Activity: Limit activity as instructed and As per PT/OT instructions Patient Instructions: Hydrocodone/Acetaminophen (By mouth), Anterior Cervical Discectomy (DC) Activity Restrictions/Additional Instructions: Activity -Cervical fusion: Wear cervical collar 24 hours a day. Change as necessary for showering, shaving, or if it becomes soiled. -No lifting or reaching overhead. - No driving until office followup visit - No lifting/pushing/pulling over 10 pounds - Avoid twisting or bending - Walking is encouraged - Home exercise per physical therapist - You may engage in sexual intercourse at any time as long as it is comfortable for you - Check with your doctor before returning to work. Notify your doctor if you develop: - temperature of 101.5 degrees F. or higher - redness or swelling of the incision - Foul drainage - increasing pain - increasing numbness or tingling in the arms or legs - New or increasing problems with vision, balance, memory, speaking, nausea or vomiting Hygiene: - Showering is okay - No tub baths or soaking Other: Remove outer bandage 3 days after surgery. If you have paper strips, leave in place until they fall off on their own. If you have stitches, keep your incision dry until the stitches are removed. Your doctor's office is available to answer any questions from 7 AM to 5:00 PM, Wednesday through at [phone]. After hours, go to the emergency room at [facility] or call 911 for assistance. Discharge Date/Time: 01/09/20 17:30 Discharge Attestations Time Spent in Discharge Care*: other (Postop global) Quality Metrics Clinical Quality Measures During this hospital stay, did patient experience: None Coding Level of Care Code Acute Retail Assistant Store Manager for Jayne Newman Diagnoses Cervical disc disorder with myelopathy of mid-cervical region M50.020 S/P cervical spinal fusion Z98.1 Comment Postop global
--- NOTE | 2020-01-10 15:27 | PM.HP ---
Providers/Chief Complaint Admitting Physician: Saúl Collazo MD Primary Care Provider: Asia Mcdaniels Chief Complaint: Cervical disc disorder with myelopathy of mid cerv History of Present Illness Crissy Alexis is a 49 year old female. The patient underwent C5-C6, C6-C7 ACDFF on 01/08/2020. She tolerated the procedure well. She had chronic/preoperative issues with anxiety, pain and spasms. She complained of postop pain/spasm exacerbation, and opted to spend the night after surgery. She completed perioperative intravenous antibiotics, and the physical therapy postoperative spine protocol. She was ambulatory, voiding, and tolerating oral intake prior to discharge home on postoperative day #1. She reported a difficult ride home. She felt that prior postop symptoms were exacerbated and new symptoms developed at home. She decided to return to [facility] for ED evaluation several hours after hospital discharge. The ED conducted an evaluation, including imaging of the c-spine. No anatomic abnormalities requiring surgical intervention were noted. No medical issues requiring intervention were identified. Due to persistent anxiety and the patients multiplicity of complaints, the ED physician recommended Hospitalist evaluation as an option. Review of Systems Const: Reports: change in appetite; Denies: fever(s) or chills Eyes: Denies: change in vision ENMT: Reports: throat pain; Denies: swelling of lips/tongue, dry mouth, disequilibrium or nasal congestion Card: Denies: chest pain, palpitations or edema Resp: Denies: dyspnea, productive cough or non-productive cough GI: Reports: abdominal pain, dysphagia, bloating and belching; Denies: nausea, vomiting, heartburn, diarrhea or constipation : Denies: difficulty voiding Musc: Reports: neck pain, extremity pain and muscle weakness Skin/Breast: Denies: rash or pruritus Neuro: Reports: headache(s), numbness in extremities, weakness in extremities, sensory changes and difficulty walking; Denies: lack of coordination, dizziness, confusion, Slurred speech present or involuntary movements Psych: Reports: anxiety and depression David/Lymph: Denies: easy bruising or easy bleeding Medications/Allergies Home Medications Medication Instructions Recorded Confirmed Last Taken Type baclofen 20 mg tablet 20 mg PO .up to 2 daily tab 07/24/19 01/18/20 01/09/20 18:00 History hydrocodone 5 mg-acetaminophen 325 1 tab PO BID PRN 11/30/19 01/18/20 01/07/20 History mg tablet gabapentin 300 mg capsule 300 mg PO TID #90 cap 12/29/19 01/18/20 01/09/20 16:00 Rx hydroxyzine pamoate 50 mg capsule 50 mg PO .one to two bedtime #60 12/29/19 01/18/20 01/08/20 Rx cap cholecalciferol (vitamin D3) 125 mcg PO DAILY 01/08/20 01/10/20 01/07/20 History [Vitamin D3] hydrocodone-acetaminophen [[place]] 1 tab PO Q4H PRN #30 tab MDD 5 tabs 01/09/20 01/18/20 01/09/20 16:00 Rx Klonopin 1 mg PO BID 01/10/20 01/18/20 01/09/20 History Allergies Allergy/AdvReac Type Severity Reaction Status Date / Time No Known Allergies Allergy Verified 11/30/19 13:15 PFSH Acute PFSH: Medical History Chronic sinusitis Deviated septum Fatty liver Generalized anxiety disorder Hyperlipemia not on meds due to gi symptoms Major depressive disorder, recurrent, moderate Obesity Post-operative state Right thyroid nodule Sleep apnea autopap Vitamin D deficiency Surgical History H/O arthroscopy right ankle H/O removal of cyst ovary History of appendectomy History of hysterectomy partial S/P cervical spinal fusion 01/08/2020 Dr. Joo Collazo: C5-C6, C6-C7 ACDFF Family History Father Hypertension Heart attack Mother Heart attack Brother Asthma Denies family history of Anesthesia complication Bleeding disorder Social History Smoking and tobacco status: former smoker Alcohol intake: never Lives independently: Yes Household members: spouse Housing: House Marital status: Current occupational status: disabled History of recent travel: No Current gender identity: Female Kellen/Jew: [employer] Vitals/I&O/Wt Last Vital Signs Temp 97.4 F L 01/09/20 10:49 Pulse 71 01/09/20 10:49 Resp 18 01/09/20 10:49 BP 156/95 07/07/20 18:02 Pulse Ox 98 01/09/20 10:49 Physical Exam Narrative: EXAM NARRATIVE: Const COMMON NORMALS: no acute distress GENERAL APPEARANCE: cooperative, comfortable and well kempt NUTRITIONAL APPEARANCE: obese morbidly obese Neck/C-Spine COMMON NORMALS: supple GENERAL: Yes trachea midline and No anterior neck swelling CERVICAL SPINE: Yes collar present Resp COMMON NORMALS: normal respiratory effort EFFORT & INSPECTION: Yes able to speak in complete sentences and No tachypneic Extremity COMMON NORMALS: no clubbing, cyanosis or edema Neuro COMMON NORMALS: moves all extremities and no focal motor deficits GAIT: Yes Normal gait present PLANTAR REFLEX: other: bilateral (Lizzy negative) Psych COMMON NORMALS: cooperative, speech normal and activity/motor behavior normal APPEARANCE: Yes well kempt ATTITUDE: Yes calm ACTIVITY/MOTOR BEHAVIOR: Yes appropriate eye contact SPEECH: Yes normal speech MOOD & AFFECT: Yes euthymic mood and Yes anxious (mildly anxious during discussions of recovery from surgery at home) ATTENTION/CONCENTRATION: Yes attention grossly intact MEMORY/COGNITION: Yes memory grossly intact Skin WOUNDS: Yes surgical site (Left anterolateral neck surgical site dressing clean/dry/intact.) Urinary Catheter Management^: Benitez: Cath Placed During This Visit: yes Urinary Catheter Date of Insertion: 01/08/20 Urinary Catheter Time of Insertion: 12:[address]: Radiologist's impression: C-spine (01/09/2020)- 1. Postoperative changes associated with interval C5-C7 ACDF, as described above. 2. Enlarged, nodular thyroid gland with a dominant hypodense right thyroid nodule, measuring approximately 2.3 x 1.6 cm. Thyroid ultrasound is suggested for further evaluation. 3. Additional findings, as above. Head (01/09/2020)- 1. No acute intracranial hemorrhage or mass effect. 2. No definite acute infarct by CT, see above. 3. Other findings discussed above. CXR: I personally reviewed and interpreted this imaging study as follows: Radiologist's impression: 01/09/2020- Lungs are well aerated without a focal area of consolidation. A&P Assessment and plan (1) Generalized anxiety disorder: Patient with chronic anxiety, pain and muscle spasms underwent an uneventful 2-level ACDFF on 01/08/2020. She was discharged home on 01/09/2020, but returned with multiple complaints several hours after discharge. No medical or surgical issues requiring intervention were identified. The ED physician recommended Hospitalist workup. This note will act as an H&P for the Hospitalist service, as I have been notified that they are acting as consultants. Plan Hospitalist evaluation, as per ED recommendations. Home after medical workup, if no medical indications for in-hospital management are identified. Status: Chronic (2) S/P cervical spinal fusion: Status: Acute (3) Cervical disc disorder with myelopathy of mid-cervical region: Status: Chronic Attestations Medical Necessity Statement*: Patient is appropriate for Hospitalist evaluation due to multiple symptoms, and absence of neurosurgical exam or radiographic findings to warrant further intervention. Coding Level of Care Code Acute Practice Support Specialist for [facility] Fwd Diagnoses Generalized anxiety disorder F41.1 S/P cervical spinal fusion Z98.1 Cervical disc disorder with myelopathy of mid-cervical region M50.020
--- NOTE | 2020-01-10 18:00 | P.DS_ITS ---
Discharge Providers Date of Admission: 01/10/20 Date of Discharge: January 10, 2020 Attending Provider at Admission: Saúl Collazo MD Attending Provider at Discharge: Saúl Collazo MD Consults: Hospitalist Primary Care Provider: Asia Mcdaniels Diagnoses at Discharge Discharge Diagnosis (1) Generalized anxiety disorder: Status: Chronic (2) Cervical disc disorder with myelopathy of mid-cervical region: Status: Chronic (3) S/P cervical spinal fusion: Status: Acute Problem details: 01/08/2020 Dr. Joo Collazo: C5-C6, C6-C7 ACDFF Reason for Visit Reason for Visit: Cervical disc disorder with myelopathy of mid cerv Brief History: The patient underwent C5-C6, C6-C7 ACDFF on 01/08/2020. She tolerated the procedure well. She had chronic/preoperative issues with anxiety, pain and spasms. She complained of postop pain/spasm exacerbation, and opted to spend the night after surgery. She completed perioperative intravenous antibiotics, and the physical therapy postoperative spine protocol. She was ambulatory, voiding, and tolerating oral intake prior to discharge home on postoperative day #1. She reported a difficult ride home. She felt that prior postop symptoms were exacerbated and new symptoms developed at home. She decided to return to [facility] [place] [facility] for ED evaluation several hours after hospital discharge. The ED conducted an evaluation, including imaging of the c-spine. No anatomic abnormalities requiring surgical intervention were noted. No medical issues requiring intervention were identified. Due to persistent anxiety and the patients multiplicity of complaints, the ED physician recommended Hospitalist evaluation as an option. Hospital Course Hospital Course: The patient was placed in the hospital for Hospitalist evaluation. She had complaints including headache, difficulty swallowing, bloating, numbness/tingling, and weakness. However, she was able to eat, perform self care and ambulate unassisted. The hospitalist did not admit the patient, but performed a consultation. Upon being notified midday that the patient had been admitted to Neurosurgery, an expedited imaging evaluation of the brain and c-spine was arranged. No actionable findings were noted. The hospitalist identified no issues requiring further in-hospital workup or treatment, and she was discharged home on 01/10/2020. Physical Exam Const: COMMON NORMALS: no acute distress GENERAL APPEARANCE: cooperative, comfortable and well kempt NUTRITIONAL APPEARANCE: obese morbidly obese Neck/C-Spine: COMMON NORMALS: supple GENERAL: Yes trachea midline and No anterior neck swelling CERVICAL SPINE: Yes collar present Resp: COMMON NORMALS: normal respiratory effort EFFORT & INSPECTION: Yes able to speak in complete sentences and No tachypneic Extremity: COMMON NORMALS: no clubbing, cyanosis or edema Neuro: COMMON NORMALS: moves all extremities and no focal motor deficits GAIT: Yes Normal gait present PLANTAR REFLEX: other: bilateral (Lizzy negative) Psych: COMMON NORMALS: cooperative, speech normal and activity/motor behavior normal APPEARANCE: Yes well kempt ATTITUDE: Yes calm ACTIVITY/MOTOR BEHAVIOR: Yes appropriate eye contact SPEECH: Yes normal speech MOOD & AFFECT: Yes euthymic mood and Yes anxious (mildly anxious during discussions of recovery from surgery at home) ATTENTION/CONCENTRATION: Yes attention grossly intact MEMORY/COGNITION: Yes memory grossly intact Skin: WOUNDS: Yes surgical site (Left anterolateral neck surgical site dressing clean/dry/intact.) Urinary Catheter Management^: Benitez: Cath Placed During This Visit: yes Urinary Catheter Date of Insertion: 01/08/20 Urinary Catheter Time of Insertion: 12:25 Discharge Data Data Completed and Pending: Completed Studies During Hospitalization Category Date Time Status XR cervical spine 1 view portable [ XR cervical spine Exams 01/08/20 13:06 Completed 1Vport [id number]] Rou marysol XR cervical spine 1Vport [id number] Rout ine Exams 01/08/20 12:33 Completed XR cervical spine 3V* [id number] Routine Exams 01/08/20 15:20 Completed Pathology: Surgic al [PTH] Routine Pth 01/08/20 15:36 Completed Imaging^: MRI: Radiologist's impression: Brain (01/10/2020)- 1. No acute infarcts. 2. Very mild chronic microvascular ischemic disease. C-spine (01/10/2020)- 1. Status post anterior cervical fusion with interbody spacers at C5-C7. 2. Osteophytic ridging at C5 and C6 resulting in mild central and bilateral foraminal stenosis. Slightly greater cord contact at the C5-6 level. 3. No fracture. Procedures Performed: Hospitalist consult Brain MRI C-spine MRI Vitals: Last Vital Signs Temp 97.4 F L 01/09/20 10:49 Pulse 71 01/09/20 10:49 Resp 18 01/09/20 10:49 BP 156/95 01/09/20 18:02 Pulse Ox 98 01/09/20 10:49 Discharge Plan Discharge Patient Disposition: Home, Self-Care Condition: Stable Prescriptions: New hydrocodone-acetaminophen [[place]] 10-325 mg tablet 1 tab PO Q4H MDD 5 tabs PRN (Reason: pain) Qty: 30 RF: 0 Continued baclofen 20 mg tablet 20 mg PO .up to 2 daily RF: 0 gabapentin 300 mg capsule 300 mg PO TID Qty: 90 RF: 3 hydroxyzine pamoate [Vistaril] 50 mg capsule 50 mg PO .one to two bedtime Qty: 60 RF: 3 cholecalciferol (vitamin D3) [Vitamin D3] 125 mcg (5,000 unit) Tablet 125 mcg PO DAILY RF: 0 Held hydrocodone-acetaminophen [[place]] 5-325 mg tablet 1 tab PO BID PRN (Reason: Pain) RF: 0 Hold Instructions: Resume on 01/15/20. Hold while taking postop Rx. No Action Klonopin 1 mg tablet 1 mg PO BID RF: 0 Discharge Orders: Discharge Order (Routine); Ordered 01/09/20 Ordered By: Saúl Collazo Referrals: Saúl Collazo MD [Physician] - 01/25/20 10:00 am (AP/lateral c-spine x-rays prior to visit.[facility] BEFORE APPOINTMENT ON WEDNESDAY ) Discharge Diet: Advance as tolerated Discharge Activity: Limit activity as instructed and As per PT/OT instructions Patient Instructions: Hydrocodone/Acetaminophen (By mouth), Anterior Cervical Discectomy (DC) Activity Restrictions/Additional Instructions: Activity -Cervical fusion: Wear cervical collar 24 hours a day. Change as necessary for showering, shaving, or if it becomes soiled. -No lifting or reaching overhead. - No driving until office followup visit - No lifting/pushing/pulling over 10 pounds - Avoid twisting or bending - Walking is encouraged - Home exercise per physical therapist - You may engage in sexual intercourse at any time as long as it is comfortable for you - Check with your doctor before returning to work. Notify your doctor if you develop: - temperature of 101.5 degrees F. or higher - redness or swelling of the incision - Foul drainage - increasing pain - increasing numbness or tingling in the arms or legs - New or increasing problems with vision, balance, memory, speaking, nausea or vomiting Hygiene: - Showering is okay - No tub baths or soaking Other: Remove outer bandage 3 days after surgery. If you have paper strips, leave in place until they fall off on their own. If you have stitches, keep your incision dry until the stitches are removed. Your doctor's office is available to answer any questions from 7 AM to 5:00 PM, Wednesday through at [phone]. After hours, go to the emergency room at [facility] or call 911 for assistance. Discharge Date/Time: 01/09/20 17:30 Discharge Attestations Time Spent in Discharge Care*: other (postop global) Quality Metrics Clinical Quality Measures During this hospital stay, did patient experience: None Coding Level of Care Code Acute Manager Heart Failure for [facility] Fwd Diagnoses Generalized anxiety disorder F41.1 Cervical disc disorder with myelopathy of mid-cervical region M50.020 S/P cervical spinal fusion Z98.1 Comment postop global
== END 2020-01-09 17:30 | disposition home or self-care (01) ==
LOC: MEDSURG 15:46
PROVIDERS: Admitting Provider Specialist; PCP Nurse Practitioner Family; Visit Provider Specialist
PROC: 0RB30ZZ Excision of Cervical Vertebral Disc, Open Approach (ICD-10-PCS; CPT 22551; principal; 2020-01-08 12:30)
DX: M50.022 Cervical disc disorder at C5-C6 level with myelopathy (principal); G47.30 Sleep apnea, unspecified; K21.9 Gastro-esophageal reflux disease without esophagitis; E66.01 Morbid (severe) obesity due to excess calories; Z68.41 Body mass index [BMI] 40.0-44.9, adult; Z87.891 Personal history of nicotine dependence
CPT/HCPCS: 22551; 22552; 22853 ×2; 12345; 51702; 72020; 72040; 88304; 96361; 96365; 96375; 97161; 97530; 97760; C1713; G0378; J0131; J0690; J1100; J1885; J2001; J2250; J2405; J2704; J2765; J3010; J3490; J7030; L0172; L0174

== ENCOUNTER 2020-01-09 21:48 | Observation (INO) | payer MEDICAID, SELFPAY ==
[2020-01-09 21:50] VITALS: BP 158/72; PULSE 84; RESP 18; TEMP 36.7; O2SAT 94; BMI 43.3
--- NOTE | 2020-01-09 22:05 | CTR_ITS ---
PROCEDURE INFORMATION: Exam: CT Head Without Contrast Exam date and time: 01/09/2020 10:09 PM Age: 49 years old Clinical indication: Pain; Altered mental status/memory loss and walking, difficulty; Confusion or disorientation; Headache not specified; Prior surgery; Surgery date: Post-operative (0-2 days); Surgery type: C-spine 01/08/20; Additional info: PT developed a JENSEN, had some confusion, and having trouble with left leg starting today after her c-spine suregery yesterday TECHNIQUE: Imaging protocol: Computed tomography of the head without contrast. Radiation optimization: All CT scans at this facility use at least one of these dose optimization techniques: automated exposure control; mA and/or kV adjustment per patient size (includes targeted exams where dose is matched to clinical indication); or iterative reconstruction. COMPARISON: CT head wo con* [id number] 01/30/2019 10:38 PM RADIATION DOSE METRICS: Total DLP (mGy-cm): 923.39 FINDINGS: Brain: No acute intracranial hemorrhage or mass effect. No definite acute infarct by CT. MRI could be more sensitive/specific for detection, as clinically directed. Ventricles: Ventricle size is normal for age. Bones/joints: No definite acute skull fracture. Sinuses: Mild fluid/mucosal thickening in the sphenoid sinus. Included paranasal sinuses otherwise appear essentially clear. Mastoid air cells: No significant acute finding. CT/CT head wo con* [id number] IMPRESSION: 1. No acute intracranial hemorrhage or mass effect. 2. No definite acute infarct by CT, see above. 3. Other findings discussed above. Radiation Dose CTDIVOL = (mGy): DLP = 923.39 (mGy-cm)
--- NOTE | 2020-01-09 22:08 | ED_ITS ---
Documented by User: Waleska Gallegos MD 01/10/20 11:07 HPI - General Adult General: Chief complaint: General Medical Stated complaint: NEURO CHANGES AFTER SURGERY Time Seen by Provider: 01/09/20 23:25 Source: patient and EMS Mode of arrival: EMS Limitations: no limitations History of Present Illness: HPI narrative: 49-year-old female who had C5-6 and 7 neck fusion done on Wednesday. Patient states she has been having burning into her arms and legs. Patient states that she is also had pain as well. She states she had weakness of times at her legs and her arm. She states she is also had a sore throat. She denies any worsening or improving factors. Patient came in by ambulance. She states she is also had a headache as well that is mild in nature. She rates her pain currently a 6 out of 10. Associated symptoms: Deny chest pain, dyspnea, nausea, rash or vomiting Review of Systems Const: Denies: fever(s), chills, body aches or change in appetite Eyes: Denies: blurry vision or eye discomfort ENMT: Denies: throat pain or dental pain Card: Denies: chest pain Resp: Denies: dyspnea GI: Denies: abdominal pain, nausea, vomiting or diarrhea : Denies: dysuria Musc: Reports: neck pain Skin/Breast: Denies: rash Neuro: Reports: numbness in extremities and weakness in extremities Psych: Denies: depression David/Lymph: Denies: easy bruising All/Imm: Denies: urticaria PFSH ED PFSH: Medical History (Updated 01/10/20 @ 02:22 by Livia Holly MD) Cervical disc disorder with myelopathy of mid-cervical region Chronic sinusitis Deviated septum Fatty liver Generalized anxiety disorder Hyperlipemia not on meds due to gi symptoms Major depressive disorder, recurrent, moderate Obesity Right thyroid nodule Sleep apnea autopap Spondylolisthesis of cervical region Vitamin D deficiency Surgical History (Updated 01/10/20 @ 02:04 by Livia Holly MD) H/O arthroscopy right ankle H/O removal of cyst ovary History of appendectomy History of hysterectomy partial S/P cervical spinal fusion 01/08/20 Dr Collazo Family History Father Hypertension Heart attack Mother Heart attack Brother Asthma Denies family history of Anesthesia complication Bleeding disorder Social History Smoking and tobacco status: former smoker Alcohol intake: never Lives independently: Yes Household members: spouse Housing: House Marital status: Current occupational status: disabled History of recent travel: No Current gender identity: Female Kellen/Amish: Religion Physical Exam Const: COMMON NORMALS: no acute distress, patient oriented x3 and healthy appearing HENMT: COMMON NORMALS: normocephalic and atraumatic HEAD & SCALP: normocephalic and atraumatic Eye: COMMON NORMALS: Equal, round and reactive pupils present and EOMs intact bilaterally PUPIL: Yes Equal, round and reactive pupils present Neck/C-Spine: OTHER: currently in c collar Chest: COMMONS NORMALS: normal inspection of the chest and normal palpation of entire chest wall Resp: COMMON NORMALS: normal respiratory effort, No retractions, No use of accessory muscles and clear to auscultation bilaterally AUSCULTATION: clear to auscultation bilaterally Cardio: COMMON NORMALS: regular rate, regular rhythm and No murmurs present (Cardio) RATE: regular rate RHYTHM: regular rhythm GI: COMMON NORMALS: Normal to inspection, nondistended, normoactive bowel sounds present, Soft to palpation, non-tender and no masses PALPATION: Yes Soft to palpation Extremity: COMMON NORMALS: normal to inspection and full ROM Neuro: COMMON NORMALS: patient oriented x3 and moves all extremities OTHER: Slight weakness to bilateral legs and left arm Psych: COMMON NORMALS: mental status grossly normal, Normal thought process present and cooperative THOUGHT PROCESS: Normal thought process present Skin: COMMON NORMALS: no rashes or lesions noted and no wounds GENERAL SKIN EXAM: no rashes or lesions noted Course Vital Signs: Vital signs: Vital Signs Temperature 98.6 F 01/10/20 08:00 Pulse Rate 78 01/10/20 08:00 Respiratory Rate 16 01/10/20 08:35 Blood Pressure 157/84 01/10/20 08:00 Pulse Oximetry 98 01/10/20 08:00 [facility] - General Adult Lab Data: Labs: Lab Results 01/09/20 01/09/20 01/09/20 Range/Units 22:48 22:48 22:48 WBC 8.8 (4.0-10.0) 10^3/ uL RBC 4.73 (4.1-5.3) 10^6/u L Hgb 14.5 (11.5-15.3) g/dL Hct 45.6 (37.0-47.0) % MCV 96.4 (81-99) fL MCH 30.7 (28.0-34.0) pg MCHC 31.8 (30.0-36.0) g/dL RDW 11.9 L (12.1-15.1) % Plt Count 265 (130-400) 10^3/c mm MPV 9.7 (7.4-10.4) fL Neut % (Auto) 64.5 % Lymph % (Auto) 25.5 % [place] % (Auto) 8.2 % Eos % (Auto) 0.5 % Baso % (Auto) 0.8 % Neut # (Auto) 5.7 (1.8-7.7) 10^3/u L Lymph # (Auto) 2.3 (0.8-4.8) 10^3/u L [place] # (Auto) 0.7 (0.2-0.9) 10^3/u L Eos # (Auto) 0.0 (0.0-0.8) 10^3/u L Baso # (Auto) 0.1 (0.0-0.1) 10^3/u L Nucleated RBC % (a uto) 0 % Nucleated RBCs # 0.0 /100WBC Sodium 140 (136-145) mmol/L Potassium 3.5 (3.5-5.1) mmol/L Chloride 106 (98-107) mmol/L Carbon Dioxide 20 L (22-29) mmol/L Anion Gap 17.5 (5-19) BUN 9 (6-20) mg/dL Creatinine 0.9 (0.5-0.9) mg/dL GFR Calculation 66.8 L (90-130) mL/min Glucose 99 (65-115) mg/dL Calculated Osmolal ity 286 (285-295) mOsm/k g Calcium 9.2 (8.5-10.5) mg/dL Total Bilirubin 0.5 (0.15-1.2) mg/dL AST 20 (0-32) U/L ALT 23 (0-33) U/L Alkaline Phosphata se 33 L (35-105) IU/L Troponin T Baselin e 8 (0-10) ng/L Total Protein 7.0 (6.6-8.7) g/dL Albumin 4.0 (3.5-5.2) g/dL Globulin 3.0 (1.3-4.6) g/dL Imaging Data^: CT Head: Radiologist's impression: [address] [address] [address] Scan Report Signed Patient: Crissy Alexis Unit #: [id number] : 1970 Age/Sex: 49 / F ADM Date: 01/09/20 Loc: ER Room/Bed: Attending Dr: Ordering Provider/Ordering MD: Waleska Gallegos MD Date of Service: 01/09/20 Procedure(s): CT head wo con* [id number] Accession Number(s): [id number] Report Number: [id number] PROCEDURE INFORMATION: Exam: CT Head Without Contrast Exam date and time: 01/09/2020 10:09 PM Age: 49 years old Clinical indication: Pain; Altered mental status/memory loss and walking, difficulty; Confusion or disorientation; Headache not specified; Prior surgery; Surgery date: Post-operative (0-2 days); Surgery type: C-spine 01/08/20; Additional info: PT developed a JENSEN, had some confusion, and having trouble with left leg starting today after her c-spine suregery yesterday TECHNIQUE: Imaging protocol: Computed tomography of the head without contrast. Radiation optimization: All CT scans at this facility use at least one of these dose optimization techniques: automated exposure control; mA and/or kV adjustment per patient size (includes targeted exams where dose is matched to clinical indication); or iterative reconstruction. COMPARISON: CT head wo con* [id number] 01/30/2019 10:38 PM RADIATION DOSE METRICS: Total DLP (mGy-cm): 923.39 FINDINGS: Brain: No acute intracranial hemorrhage or mass effect. No definite acute infarct by CT. MRI could be more sensitive/specific for detection, as clinically directed. Ventricles: Ventricle size is normal for age. Bones/joints: No definite acute skull fracture. Sinuses: Mild fluid/mucosal thickening in the sphenoid sinus. Included paranasal sinuses otherwise appear essentially clear. Mastoid air cells: No significant acute finding. CT/CT head wo con* [id number] IMPRESSION: 1. No acute intracranial hemorrhage or mass effect. 2. No definite acute infarct by CT, see above. 3. Other findings discussed above. EKG Data^: EKG 1: Computer generated interpretation: Head CT 01/09/20 22:05 IMPRESSION: 1. No acute intracranial hemorrhage or mass effect. 2. No definite acute infarct by CT, see above. 3. Other findings discussed above. Radiation Dose CTDIVOL = (mGy): DLP = 923.39 (mGy-cm) Cervical Spine CT 01/09/20 22:06 IMPRESSION: 1. Postoperative changes associated with interval C5-C7 ACDF, as described above. 2. Enlarged, nodular thyroid gland with a dominant hypodense right thyroid nodule, measuring approximately 2.3 x 1.6 cm. Thyroid ultrasound is suggested for further evaluation. 3. Additional findings, as above. COMMENTS: Consistent with the [employer]'s Incidental Findings Committee white paper (J Am Maricel Radiol 2015): In patients aged 35 years and older with an incidental thyroid nodule equal to or greater than 1.[address], MRI or extrathyroidal US, further evaluation with dedicated thyroid US is recommended for patients with normal life expectancy and without comorbidities. For smaller nodules without suspicious features, no further evaluation or follow up is recommended. Radiation Dose CTDIVOL = (mGy): DLP = 944.49 (mGy-cm) Chest X-Ray 01/09/20 23:27 IMPRESSION: Lungs are well aerated without a focal area of consolidation. Discharge Plan Discharge Patient Disposition: Placed in Observation Admit Provider: Saúl Collazo Clinical Impression: Generalized weakness Condition: Stable Discharge Date/Time: 01/10/20 02:08 Coding Level of Care Code ED Electronic Publications Specialist for Chg Fwd Exam Comprehensive Documented by User: Agnieszka Conrad 01/10/20 00:27 HPI - General Adult General: Chief complaint: General Medical Stated complaint: NEURO CHANGES AFTER SURGERY Time Seen by Provider: 01/09/20 23:25 PFSH ED PFSH: Medical History (Updated 01/10/20 @ 02:22 by Livia Holly MD) Cervical disc disorder with myelopathy of mid-cervical region Chronic sinusitis Deviated septum Fatty liver Generalized anxiety disorder Hyperlipemia not on meds due to gi symptoms Major depressive disorder, recurrent, moderate Obesity Right thyroid nodule Sleep apnea autopap Spondylolisthesis of cervical region Vitamin D deficiency Surgical History (Updated 01/10/20 @ 02:04 by Livia Holly MD) H/O arthroscopy right ankle H/O removal of cyst ovary History of appendectomy History of hysterectomy partial S/P cervical spinal fusion 01/08/20 Dr Collazo Family History Father Hypertension Heart attack Mother Heart attack Brother Asthma Denies family history of Anesthesia complication Bleeding disorder Social History Smoking and tobacco status: former smoker Alcohol intake: never Lives independently: Yes Household members: spouse Housing: House Marital status: Current occupational status: disabled History of recent travel: No Current gender identity: Female Kellen/Amish: Religion Course Vital Signs: Vital signs: Vital Signs Temperature 98.6 F 01/10/20 08:00 Pulse Rate 78 01/10/20 08:00 Respiratory Rate 16 01/10/20 08:35 Blood Pressure 157/84 01/10/20 08:00 Pulse Oximetry 98 01/10/20 08:00 MDM - General Adult MDM Narrative: Medical decision making narrative: Patient is able to ambulate here but still complains of diffuse burning and paresthesias. I do not see anything that follows a neural anatomical pathway that suggest a focal lesion. I reviewed the case in full with Dr. Collazo who agrees to admit and would like to consult the hospitalist service. Dr. Fajardo was notified of the consult. Lab Data: Attestation: I reviewed the patient's lab results. Labs: Lab Results 01/09/20 01/09/20 01/09/20 Range/Units 22:48 22:48 22:48 WBC 8.8 (4.0-10.0) 10^3/ uL RBC 4.73 (4.1-5.3) 10^6/u L Hgb 14.5 (11.5-15.3) g/dL Hct 45.6 (37.0-47.0) % MCV 96.4 (81-99) fL MCH 30.7 (28.0-34.0) pg MCHC 31.8 (30.0-36.0) g/dL RDW 11.9 L (12.1-15.1) % Plt Count 265 (130-400) 10^3/c mm MPV 9.7 (7.4-10.4) fL Neut % (Auto) 64.5 % Lymph % (Auto) 25.5 % [place] % (Auto) 8.2 % Eos % (Auto) 0.5 % Baso % (Auto) 0.8 % Neut # (Auto) 5.7 (1.8-7.7) 10^3/u L Lymph # (Auto) 2.3 (0.8-4.8) 10^3/u L [place] # (Auto) 0.7 (0.2-0.9) 10^3/u L Eos # (Auto) 0.0 (0.0-0.8) 10^3/u L Baso # (Auto) 0.1 (0.0-0.1) 10^3/u L Nucleated RBC % (a uto) 0 % Nucleated RBCs # 0.0 /100WBC Sodium 140 (136-145) mmol/L Potassium 3.5 (3.5-5.1) mmol/L Chloride 106 (98-107) mmol/L Carbon Dioxide 20 L (22-29) mmol/L Anion Gap 17.5 (5-19) BUN 9 (6-20) mg/dL Creatinine 0.9 (0.5-0.9) mg/dL GFR Calculation 66.8 L (90-130) mL/min Glucose 99 (65-115) mg/dL Calculated Osmolal ity 286 (285-295) mOsm/k g Calcium 9.2 (8.5-10.5) mg/dL Total Bilirubin 0.5 (0.15-1.2) mg/dL AST 20 (0-32) U/L ALT 23 (0-33) U/L Alkaline Phosphata se 33 L (35-105) IU/L Troponin T Baselin e 8 (0-10) ng/L Total Protein 7.0 (6.6-8.7) g/dL Albumin 4.0 (3.5-5.2) g/dL Globulin 3.0 (1.3-4.6) g/dL Imaging Data^: CT Head: Radiologist's impression: [address] [address] [address] Scan Report Signed Patient: Crissy Alexis Unit #: [id number] : 1970 Age/Sex: 49 / F ADM Date: 01/09/20 Loc: ER Room/Bed: Attending Dr: Ordering Provider/Ordering MD: Waleska Gallegos MD Date of Service: 01/09/20 Procedure(s): CT head wo con* [id number] Accession Number(s): [id number] Report Number: [id number] PROCEDURE INFORMATION: Exam: CT Head Without Contrast Exam date and time: 01/09/2020 10:09 PM Age: 49 years old Clinical indication: Pain; Altered mental status/memory loss and walking, difficulty; Confusion or disorientation; Headache not specified; Prior surgery; Surgery date: Post-operative (0-2 days); Surgery type: C-spine 01/08/20; Additional info: PT developed a JENSEN, had some confusion, and having trouble with left leg starting today after her c-spine suregery yesterday TECHNIQUE: Imaging protocol: Computed tomography of the head without contrast. Radiation optimization: All CT scans at this facility use at least one of these dose optimization techniques: automated exposure control; mA and/or kV adjustment per patient size (includes targeted exams where dose is matched to clinical indication); or iterative reconstruction. COMPARISON: CT head wo con* [id number] 01/30/2019 10:38 PM RADIATION DOSE METRICS: Total DLP (mGy-cm): 923.39 FINDINGS: Brain: No acute intracranial hemorrhage or mass effect. No definite acute infarct by CT. MRI could be more sensitive/specific for detection, as clinically directed. Ventricles: Ventricle size is normal for age. Bones/joints: No definite acute skull fracture. Sinuses: Mild fluid/mucosal thickening in the sphenoid sinus. Included paranasal sinuses otherwise appear essentially clear. Mastoid air cells: No significant acute finding. CT/CT head wo con* [id number] IMPRESSION: 1. No acute intracranial hemorrhage or mass effect. 2. No definite acute infarct by CT, see above. 3. Other findings discussed above. Radiation Dose CTDIVOL = (mGy): DLP = 923.39 (mGy-cm) Dictated By: Mahad Luna MD Signed By: Mahad Luna MD Signed Date/Time: 01/09/202234 DD/ 32 CXR: My impression: No acute cardiopulmonary findings CT Cervical Spine: Radiologist's impression: [place] [address] CT Scan Report Signed Patient: Crissy Alexis Unit #: [id number] : 1970 Age/Sex: 49 / F ADM Date: 01/09/20 Loc: ER Room/Bed: Attending Dr: Ordering Provider/Ordering MD: Waleska Gallegos MD Date of Service: 01/09/20 Procedure(s): CT cervical spin wo con* [id number] Accession Number(s): [id number] Report Number: [id number] PROCEDURE INFORMATION: Exam: CT Cervical Spine Without Contrast Exam date and time: 01/09/2020 10:09 PM Age: 49 years old Clinical indication: Numbness; Neck pain; Prior surgery; Surgery date: Post-operative (0-2 days); Surgery type: C-spine 01/08/20 TECHNIQUE: Imaging protocol: Computed tomography images of the cervical spine without contrast. Axial, coronal and sagittal reformatted images were created and reviewed. Radiation optimization: All CT scans at this facility use at least one of these dose optimization techniques: automated exposure control; mA and/or kV adjustment per patient size (includes targeted exams where dose is matched to clinical indication); or iterative reconstruction. COMPARISON: CT Cervical Spine wo* [id number] 10/31/2018 7:20 PM RADIATION DOSE METRICS: Total DLP (mGy-cm): 944.49 FINDINGS: Vertebrae: Straightening of the normal cervical lordosis. Status post interval C5-C7 ACDF. No evidence of hardware complication. Alignment anatomic. Minimal levoscoliosis. No CT evidence of acute fracture, dislocation or subluxation. Discs/Spinal canal/Neural foramina: Mild multilevel spondylosis. Posterior ridging at C5-C6 and C6-C7, mildly effacing the ventral thecal sac. No significant spinal canal or neural foraminal stenosis. Soft tissues: Postoperative changes along the left side of the neck with a moderate amount of prevertebral, retropharyngeal and paraesophageal edema and gas, extending along the left sternocleidomastoid musculature. No definite organized collection. Thyroid: Enlarged, nodular thyroid gland with a dominant hypodense right thyroid nodule, measuring approximately 2.3 x 1.6 cm. Lungs: Grossly unremarkable. CT/CT cervical spin wo con* [id number] IMPRESSION: 1. Postoperative changes associated with interval C5-C7 ACDF, as described above. 2. Enlarged, nodular thyroid gland with a dominant hypodense right thyroid nodule, measuring approximately 2.3 x 1.6 cm. Thyroid ultrasound is suggested for further evaluation. 3. Additional findings, as above. COMMENTS: Consistent with the [employer]'s Incidental Findings Committee white paper (J [employer] Maricel Radiol 2015): In patients aged 35 years and older with an incidental thyroid nodule equal to or greater than 1.[address], MRI or extrathyroidal US, further evaluation with dedicated thyroid US is recommended for patients with normal life expectancy and without comorbidities. For smaller nodules without suspicious features, no further evaluation or follow up is recommended. Radiation Dose CTDIVOL = (mGy): DLP = 944.49 (mGy-cm) Dictated By: Cristian Yousif MD Signed By: Cristian Yousif MD Signed Date/Time: 01/09/202311 DD/ 09 EKG Data^: EKG 1: Attestation: I personally reviewed and interpreted this EKG as follows: EKG interpretation date: 01/09/20 EKG interpretation time: 00:35 Interpretation: Normal sinus rhythm at 83 beats a minute, normal axis, nonspecific ST and T wave changes, Computer generated interpretation: Head CT 01/09/20 22:05 IMPRESSION: 1. No acute intracranial hemorrhage or mass effect. 2. No definite acute infarct by CT, see above. 3. Other findings discussed above. Radiation Dose CTDIVOL = (mGy): DLP = 923.39 (mGy-cm) Cervical Spine CT 01/09/20 22:06 IMPRESSION: 1. Postoperative changes associated with interval C5-C7 ACDF, as described above. 2. Enlarged, nodular thyroid gland with a dominant hypodense right thyroid nodule, measuring approximately 2.3 x 1.6 cm. Thyroid ultrasound is suggested for further evaluation. 3. Additional findings, as above. COMMENTS: Consistent with the [employer]'s Incidental Findings Committee white paper (J Am Maricel Radiol 2015): In patients aged 35 years and older with an incidental thyroid nodule equal to or greater than 1.[address], MRI or extrathyroidal US, further evaluation with dedicated thyroid US is recommended for patients with normal life expectancy and without comorbidities. For smaller nodules without suspicious features, no further evaluation or follow up is recommended. Radiation Dose CTDIVOL = (mGy): DLP = 944.49 (mGy-cm) Chest X-Ray 01/09/20 23:27
--- NOTE | 2020-01-09 22:15 | PC.NURSE ---
Pt. to CT scan via stretcher. With tech
[2020-01-09 22:53] LABS: Basophils # 0.1 10^3/uL (0.0-0.1); Basophils % 0.8 %; Eosinophils % 0.5 %; Hematocrit 45.6 % (37.0-47.0); Hemoglobin 14.5 g/dL (11.5-15.3); Lymphocytes # 2.3 10^3/uL (0.8-4.8); Lymphocytes % 25.5 %; Mean Corpuscular HGB Conc 31.8 g/dL (30.0-36.0); Mean Corpuscular Hemoglobin 30.7 pg (28.0-34.0); Mean Corpuscular Volume 96.4 fL (81-99); Mean Platelet Volume 9.7 fL (7.4-10.4); Monocytes # 0.7 10^3/uL (0.2-0.9); Monocytes % 8.2 %; Neutrophils # 5.7 10^3/uL (1.8-7.7); Neutrophils % 64.5 %; Nucleated Red Blood Cells % 0 %; Platelet Count 265 10^3/cmm (130-400); Red Blood Count 4.73 10^6/uL (4.1-5.3); Red Cell Distribution Width 11.9 % (12.1-15.1); White Blood Count 8.8 10^3/uL (4.0-10.0)
[2020-01-09 22:58] VITALS: RESP 20
[2020-01-09] MEDS: HYDROmorphone 1 mg/mL INJ 1 mL IVP (22:58)
[2020-01-09] MEDS: ondansetron 2 mg/ML SDV 2 mL 4 MG IVP (22:59)
[2020-01-09 23:02] VITALS: BP 117/80; PULSE 81; RESP 18; O2SAT 92
[2020-01-09 23:07] LABS: Alanine Aminotransferase 23 U/L (0-33); Alkaline Phosphatase 33 IU/L (35-105); Anion Gap 17.5 (5-19); Aspartate Amino Transferase 20 U/L (0-32); Blood Urea Nitrogen 9 mg/dL (6-20); Calcium 9.2 mg/dL (8.5-10.5); Carbon Dioxide 20 mmol/L (22-29); Chloride 106 mmol/L (98-107); Glomerular Filtration Rate 66.8 mL/min (90-130); Glucose 99 mg/dL (65-115); Osmolality Calculated 286 mOsm/kg (285-295); Potassium 3.5 mmol/L (3.5-5.1); Sodium 140 mmol/L (136-145); Total Bilirubin 0.5 mg/dL (0.15-1.2)
--- NOTE | 2020-01-09 23:27 | XRR_ITS ---
PROCEDURE INFORMATION: Exam: XR Chest, 1 View Exam date and time: 01/09/2020 11:41 PM Age: 49 years old Clinical indication: Other: AMS; Prior surgery; Surgery date: Post-operative (0-2 days); Surgery type: Spinal fusion; Patient HX: No chest complaints TECHNIQUE: Imaging protocol: XR of the chest Views: 1 view. COMPARISON: CR XR chest 1V portable [id number] 10/24/2019 8:21 PM FINDINGS: Lungs: Lungs are well aerated without a focal area of consolidation. Pleural space: Unremarkable. No pleural effusion. No pneumothorax. Heart/Mediastinum: Unremarkable. No cardiomegaly. Bones/joints: Prior surgical fixation of the caudal aspect of the cervical spine. XR/XR chest 1V portable [id number] IMPRESSION: Lungs are well aerated without a focal area of consolidation.
--- NOTE | 2020-01-09 23:55 | ECG_ITS ---
Test Date: 2020-01-10 Pat Name: Crissy Alexis Department: Room: 254 Gender: Female Rn Observation: Yasmin : 1970 Requested By: Agnieszka Miller Order Number: [id number] Fany MD: Erlinda Deleon M.D. Measurements Intervals [place] Rate: 83 P: 3 VT: 149 QRS: -1 QRSD: 85 T: 43 QT: 370 QTc: 436 Interpretive Statements SINUS RHYTHM NONSPECIFIC ST & T-WAVE ABNORMALITY Compared to ECG 10/24/2019 22:44:27 T-wave abnormality now present Electronically Signed On 01-11-2020 17:13:17 CDT by Erlinda Deleon M.D. [email or web address]
[2020-01-10] VITALS (14 sets, daily range): BP systolic 118–157; BP diastolic 70–97; PULSE 65–91; RESP 16–20; TEMP 36.5–37; O2SAT 92–98
--- NOTE | 2020-01-10 00:28 | P.CONIM_ITS ---
Providers/Reason For Consult Consulting Physican/Specialty*: Av[facility], Hospitalist Reason for Consult*: multiple complaints post operatively Attending Physician: Saúl Collazo MD Primary Care Provider: Asia Mcdaniels History of Present Illness History of Present Illness Crissy Alexis is a 49 year old female who underwent C5-C7 ACDFF by Dr. Collazo on January 07. She was discharged on January 08. She states that her pain was not fully controlled prior to discharge. She was experiencing a burning sensation in her left arm and left leg and had a headache. She is normally on hydrocodone 5 and dose was increased to hydrocodone 10 postoperatively. She lives about an hour away and states that on the drive she was not very comfortable. When she got home she was unable to find a position in which she could get comfortable. She tried eating and drinking but was unable to swallow Jell-O or pudding very well. She could drink liquids and applesauce. She took her gabapentin and baclofen with applesauce. She says that the burning sensation in her left arm and left leg became worse and her body felt hot all over. She complained of some facial numbness and a funny feeling like twitches all over her body. She says it felt like her throat was swelling but denies having difficulty with her secretions. She reported the need to belch and some gas discomfort for which she could not get any relief. She complained of a headache at the base of her skull in the back that has also worsened. Pain at its worst was at an 8 out of 10. She had no improvement from pain medicine that had been administered prior to discharge or the medicine she took at home. She found it difficult to move around due to pain and at one point in time felt very weak all over and had difficulty walking briefly. She ended up calling an ambulance and coming back in. The ambulance ride was also uncomfortable for her. In the emergency room she was evaluated and reported difficulty lifting her legs, particularly the left one. Repeat evaluation later, she was able to walk. She had received some fentanyl via EMS and Dilaudid in the emergency room. After the Dilaudid the pain was down to 1 out of 10 but she continued to have the burning sensation. Prior to her surgery she had primarily numbness and pain and it never had this burning sensation. At the time of my evaluation she is feeling better than she had been feeling but is still not where she feels like she should be at this point postoperatively. She does state that the numbness in her left shoulder is improved from what it was prior to surgery. She complains of a numb feeling in her left arm and leg and glove and stocking distribution that is a bit new. Her breathing has been okay. She states that her face was red at some point in time and her blood pressure was elevated. She admits to being anxious with all of the symptoms that she was having. She did not get to a point of taking her Klonopin at home. She is on this chronically for anxiety. Case was discussed with Dr. Collazo who is admitting her for further monitoring and possibly additional evaluation. Consultation was requested to hospitalist to ensure nothing else is going on. She denies nausea or vomiting. She has not had a bowel movement since surgery. No dizziness or syncope. Review of Systems Const: Reports: change in appetite; Denies: fever(s) or chills Eyes: Denies: change in vision ENMT: Reports: throat pain; Denies: swelling of lips/tongue, dry mouth, disequilibrium or nasal congestion Card: Denies: chest pain, palpitations or edema Resp: Denies: dyspnea, productive cough or non-productive cough GI: Reports: abdominal pain, dysphagia, bloating and belching; Denies: nausea, vomiting, heartburn, diarrhea or constipation : Denies: difficulty voiding Musc: Reports: neck pain, extremity pain and muscle weakness Skin/Breast: Denies: rash or pruritus Neuro: Reports: headache(s), numbness in extremities, weakness in extremities, sensory changes and difficulty walking; Denies: lack of coordination, dizziness, confusion, Slurred speech present or involuntary movements Psych: Reports: anxiety and depression David/Lymph: Denies: easy bruising or easy bleeding Meds/Allergies Home Medications and Allergies Home Medications Medication Instructions Recorded Confirmed Last Taken Type baclofen 20 mg tablet 20 mg PO .up to 2 daily tab 07/24/19 01/10/20 01/09/20 18:00 History hydrocodone 5 mg-acetaminophen 325 1 tab PO BID PRN 11/30/19 01/10/20 01/07/20 History mg tablet gabapentin 300 mg capsule 300 mg PO TID #90 cap 12/29/19 01/10/20 01/09/20 16:00 Rx hydroxyzine pamoate 50 mg capsule 50 mg PO .one to two bedtime #60 12/29/19 01/10/20 01/08/20 Rx cap cholecalciferol (vitamin D3) 125 mcg PO DAILY 01/08/20 01/10/20 01/07/20 History [Vitamin D3] hydrocodone-acetaminophen [Lanse] 1 tab PO Q4H PRN #30 tab MDD 5 tabs 01/09/20 01/10/20 01/09/20 16:00 Rx Klonopin 1 mg PO BID 01/10/20 01/10/20 01/09/20 History Allergies Allergy/AdvReac Type Severity Reaction Status Date / Time No Known Allergies Allergy Verified 11/30/19 13:15 PFSH Acute PFSH: Medical History (Updated 01/10/20 @ 02:22 by Livia Holly MD) Cervical disc disorder with myelopathy of mid-cervical region Chronic sinusitis Deviated septum Fatty liver Generalized anxiety disorder Hyperlipemia not on meds due to gi symptoms Major depressive disorder, recurrent, moderate Obesity Right thyroid nodule Sleep apnea autopap Spondylolisthesis of cervical region Vitamin D deficiency Surgical History (Updated 01/10/20 @ 02:04 by Livia Holly MD) H/O arthroscopy right ankle H/O removal of cyst ovary History of appendectomy History of hysterectomy partial S/P cervical spinal fusion 01/08/20 Dr Collazo Family History Father Hypertension Heart attack Mother Heart attack Brother Asthma Denies family history of Anesthesia complication Bleeding disorder Social History Smoking and tobacco status: former smoker Alcohol intake: never Lives independently: Yes Household members: spouse Housing: House Marital status: Current occupational status: disabled History of recent travel: No Current gender identity: Female Kellen/Congregation: [employer] Vitals/I&O/Wt Last Vital Signs Temp 98.1 F 01/09/20 21:50 Pulse 81 01/09/20 23:02 Resp 18 01/09/20 23:02 BP 117/80 01/09/20 23:02 Pulse Ox 92 01/09/20 23:02 Weight last 48 hrs Weight 129.274 kg Physical Exam Const: OTHER: Alert, oriented x3, cooperative HENMT: OTHER: Normocephalic atraumatic, moist mucus membranes, visible oropharynx without any pharyngeal edema noted though view is limited by the extent she can open her mouth. No difficulty with oral secretions or drooling. Eye: OTHER: Pupils equally round and reactive to light Neck/C-Spine: OTHER: Cervical collar is in place, visible dressings are intact anteriorly. There is some redness around where the brace connects with her skin posteriorly. Resp: OTHER: Clear to auscultation bilaterally, no rales, rhonchi or wheezes noted, no accessory muscle use noted Cardio: OTHER: Regular rate and rhythm, no murmurs gallops or rubs. Pulses equal throughout. GI: OTHER: Abdomen soft, nontender, nondistended with positive bowel sounds Extremity: NARRATIVE EXTREMITY EXAM: No cyanosis, clubbing or edema, no acute synovitis Neuro: OTHER: Face symmetric, extraocular movements are intact, pupils are reactive, speech clear, moves all extremities. Reports decrease in sensation in a glove and stocking distribution on the left compared to the right. Does not follow a dermatomal pattern. Handgrip equal and able to lift both legs equally though appears to require more effort on the left. Patellar reflexes equal. No abnormal movements noted Psych: OTHER: Normal affect Skin: OTHER: Surgical site appears intact that was not fully visible. No rashes. Face is a bit red in the cheeks and there is erythema where neck brace meets the skin but looks to be from physical contact rather than reactive otherwise. A&P Assessment and plan (1) Post-operative pain: Status: Acute (2) Paresthesia: Status: Acute (3) Difficulty swallowing: Status: Acute Qualifiers: Dysphagia type: unspecified Qualified Code(s): R13.10 - Dysphagia, unspecified (4) Generalized weakness: Status: Chronic (5) Headache: Acute Status: Acute Qualifiers: Headache chronicity pattern: acute headache Headache type: unspecified Intractability: intractable Qualified Code(s): R51 - Headache (6) S/P cervical spinal fusion: 01/08/20 Status: Acute (7) Sleep apnea: Status: Chronic Qualifiers: Sleep apnea type: obstructive Qualified Code(s): G47.33 - Obstructive sleep apnea (adult) (pediatric) (8) Generalized anxiety disorder: Status: Chronic Additional A&P Information Patient describes being uncomfortable since she left the hospital. Has not been able to achieve good pain relief. The ride home was at times bumpy and sounds like it exacerbated some of her symptoms. She was unable to find a position in which she could relax. She tried to take her medications and had a sensation of difficulty swallowing. This combined with the paresthesias focused on the left side, increasing blood pressures which she attributed to her pain, sensation of not being able to walk transiently, along with the fact that she had just had surgery concerned her quite a bit. Some of her symptoms have been intermittent and not recurred since arriving here back in the ER today. She does admit that the actual numbness in her left shoulder area is not as bad as it had been prior to surgery. I do think a component of anxiety is contributing to her overall symptoms and currently do not see definite focal abnormality. She certainly could have some swelling contributing to the sensation of having difficulty swallowing but is handling her oral secretions okay, talking clearly. Currently looks calm. Reassured the patient that current laboratory studies look normal as do vital signs. She feels better after receiving some pain medication. I also reassured her that some of what she is experiencing is normal after surgery - feeling limited by the brace, pain at the surgical site, and the like. Current recommendations are as follows: Consider trial of oxycodone-containing medication for pain control at home Continue serial cardiac enzymes started in the emergency room Serial neuro exams PT and OT evaluation in the morning Continue home clonazepam, baclofen CPAP, will have to see if she can tolerate the mask with her cervical collar in place, may need an alternative mask in the short-term. Discussed with her that with combination of medications she is chronically on and the acute increase in pain control medications she needs to make sure that she can wear the CPAP consistently. Monitor oral intake closely Reassurance as appropriate Other evaluation and care as per Dr. Collazo Thank you for consultation Consult Attestations Medical Necessity Statement: as per surgery Coding Level of Care Code Acute Enamel Applier for Chg Fwd Diagnoses Post-operative pain G89.18 Paresthesia R20.2 Difficulty swallowing R13.10 Dysphagia type: unspecified Generalized weakness R53.1 Headache R51 Headache chronicity pattern: acute headache Headache type: unspecified Intractability: intractable S/P cervical spinal fusion Z98.1 Sleep apnea G47.33 Sleep apnea type: obstructive Generalized anxiety disorder F41.1
[2020-01-10 00:35] LABS: Troponin(5th) Baseline 8 ng/L (0-10)
--- NOTE | 2020-01-10 00:54 | PC.NURSE ---
x-ray in progress at bedside
[2020-01-10] MEDS: HYDROmorphone 1 mg/mL INJ 1 mL IVP (01:52)
--- NOTE | 2020-01-10 01:55 | ECG_ITS ---
[facility] Test Date: 2020-01-10 Pat Name: Crissy Alexis Department: Room: 254 Gender: Female Orthopaedic Technologist: : 1970 Requested By: Agnieszka Miller Order Number: [id number] Fany MD: Erlinda Deleon M.D. Measurements Intervals [place] Rate: 91 P: 50 DE: 166 QRS: 52 QRSD: 88 T: 20 QT: 358 QTc: 441 Interpretive Statements SINUS RHYTHM NONSPECIFIC ST & T-WAVE ABNORMALITY Compared to ECG 01/10/2020 00:00:35 No significant changes Electronically Signed On 01-11-2020 17:25:03 CDT by Erlinda Deleon M.D. [email or web address] Communicationssinging river gulfportIBUonline[facility] hospital(In)Touch Network/store/OM/[id number]
[2020-01-10] MEDS: D5-NS 0.45% + KCL 20 mEq 20 MEQ/1,000 ML BAG 100 MEQ IV ×2 (02:23→11:41)
[2020-01-10] MEDS: oxyCODONE-APAP 5-325 mg Tablet 1 TAB PO ×4 (02:30→17:22)
[2020-01-10] MEDS: CLONazepam 1 mg Tablet PO ×2 (03:31→08:43)
[2020-01-10] MEDS: baclofen 10 mg Tablet 20 MG PO ×3 (03:31→17:24)
--- NOTE | 2020-01-10 05:55 | ECG_ITS ---
[facility] Test Date: 2020-01-10 Pat Name: Crissy Alexis Department: Room: 254 Gender: Female Top Lift Compressor: : 1970 Requested By: Agnieszka Miller Order Number: [id number] Soares MD: Erlinda Deleon M.D. Measurements Intervals [place] Rate: 76 P: 47 TX: 166 QRS: 33 QRSD: 109 T: 21 QT: 386 QTc: 436 Interpretive Statements SINUS RHYTHM POSSIBLE INFERIOR MYOCARDIAL INFARCTION [30 ms Q WAVE IN II/aVF], PROBABLY OLD Compared to ECG 01/10/2020 02:56:27 Myocardial infarct finding now present T-wave abnormality no longer present Electronically Signed On 01-11-2020 17:24:25 CDT by Erlinda Deleon M.D. [email or web address].[facility] Pharmamer[facility] hospitalSafe[facility] Safety [facility].[employer]/store/OM/[id number]
[2020-01-10 06:01] LABS: Basophils # 0.1 10^3/uL (0.0-0.1); Basophils % 0.8 %; Eosinophils # 0.1 10^3/uL (0.0-0.8); Eosinophils % 0.6 %; Hematocrit 43.4 % (37.0-47.0); Hemoglobin 14.1 g/dL (11.5-15.3); Lymphocytes # 2.4 10^3/uL (0.8-4.8); Lymphocytes % 27.5 %; Mean Corpuscular HGB Conc 32.5 g/dL (30.0-36.0); Mean Corpuscular Hemoglobin 31.4 pg (28.0-34.0); Mean Corpuscular Volume 96.7 fL (81-99); Mean Platelet Volume 9.6 fL (7.4-10.4); Monocytes # 0.7 10^3/uL (0.2-0.9); Monocytes % 7.8 %; Neutrophils # 5.6 10^3/uL (1.8-7.7); Nucleated Red Blood Cells % 0 %; Platelet Count 256 10^3/cmm (130-400); Red Blood Count 4.49 10^6/uL (4.1-5.3); White Blood Count 8.9 10^3/uL (4.0-10.0)
[2020-01-10 06:43] LABS: Anion Gap 15.5 (5-19); Blood Urea Nitrogen 10 mg/dL (6-20); Calcium 9.1 mg/dL (8.5-10.5); Carbon Dioxide 22 mmol/L (22-29); Chloride 104 mmol/L (98-107); Glomerular Filtration Rate 76.6 mL/min (90-130); Glucose 114 mg/dL (65-115); Osmolality Calculated 283 mOsm/kg (285-295); Potassium 3.5 mmol/L (3.5-5.1); Sodium 138 mmol/L (136-145)
[2020-01-10 06:45] LABS: Troponin 5 6HR 6 ng/L (0-10); Troponin 5 6HR Delta -2 ng/L (0-12)
[2020-01-10] MEDS: gabapentin 300 mg Capsule PO ×2 (08:38→16:00)
[2020-01-10] MEDS: cholecalciferol (vitamin D3) 5,000 unit Tablet 5000 UNIT PO (08:39)
--- NOTE | 2020-01-10 09:47 | PC.CHAP ---
Pastoral Care Encounter/Spiritual Assessment Type of Contact [] Declined shop helper visit [] Patient/Family/Request visit [] Outpatient visit [] Follow-up visit [] Physician referral [] Code/Alert [x] Routine visit [] Staff referral [] Actively dying [] Patient sleeping [] Family support [] [] Out of room [] Palliative care [] [] Receiving care in room [] Pre-surgical visit [] Trauma [] Long length of stay [] ICU visit [] Other: Relational/Emotional Strength [] Patient feels connected with others/family/visitors/staff [] Distress [] Loneliness/isolation [] Abandonment Spirituality of Patient [] Person of Kellen [] Attends Lutheran of their Kellen [] Believes in Prayer [] Reads Bible or Restorationism materials [] There are Spiritual issues to be addressed Artificial Intelligence Specialist Interventions [x] Prayer [x] Active listening [x] Non-anxious presence [x] Spiritual/emotional support [] Crisis/trauma care [] Spiritual counseling [] Bereavement support [] Provided bereavement packet [] Provided Bible/devotional materials [] Provided toy/stuffed animal, coloring book to patient or family member [] Provided Communion [] Anointing/[place] [] Salvation [x] Completed spiritual assessment [] Other: Impact on Illness or Injury [] Angry [] Fearful [x] Anxious [] Often cries [] Exhaustion [] Unable to work [] Unable to attend uatsdin [] Unable to walk/stand [] Unable to read [] Unable to drive [] Unable to eat/drink [] Unable to sleep [] Unable to be with family [] Patient intubated [] Other: Summary returned home after surgery- had to return to [facility] due to issues. Time spent with patient 15 min
--- NOTE | 2020-01-10 10:45 | MR_ITS ---
WS: [id number] MRI BRAIN WITHOUT CONTRAST HISTORY: left sided numbness, weakness COMPARISON: CT 01/09/2020 TECHNIQUE: Diffusion imaging, multiplanar T1, T2 and FLAIR imaging obtained. No evidence for acute infarct or hemorrhage. Lemus-white matter differentiation is normal. No remote or acute infarcts are volume loss. There are a few scattered T2 and FLAIR signal hyperinten sities from chronic ischemic disease. No prior infarct. Mild cerebral atrophy. Ventricles and extra-axial spaces are normal. No inferior displacement of cerebellar tonsils. The sella turcica and pituitary gland are unremarkabl e. Posterior fossa is also unremarkable. Dural venous sinuses and wiyot of Rodriguez demonstrate no abnormality on this unenhanced studies. Paranasal sinuses: Mucous retention cyst in the posterior sphenoid sinus. Mastoid air cells: Normal. Calvarium and scalp: Intact. MR/MR head wo con* [id number] IMPRESSION: 1. No acute infarcts. 2. Very mild chronic microvascular ischemic disease.
--- NOTE | 2020-01-10 10:45 | MR_ITS ---
WS: [id number] MRI CERVICAL SPINE HISTORY: left sided paresthesia s/p ACDF COMPARISON: 11/29/2019 and 01/09/2020. Prior anterior cervical fusion extending from C5 to C7 with interbody spacers. Mild straightening of the normal cervical lordosis. No marrow edema or fracture. Craniocervical junction, C1 and C2 relationship, odontoid process and soft tissues are normal. Empty sella turcica. No signal abnormality within the cord. C2-C3: Normal. C3-C4: Normal. C4-C5: Mild osteophytic ridging with very shallow central disc protrusion. No significant stenosis. C5-C6: Normal. C6-C7: Diffuse osteophytic ridging with mild contact of the osteophytes upon the ventral thecal sac. Mild central and bilateral foraminal stenosis. C7-T1: Diffuse osteophytic ridging and facet arthritis. Fluid in the facet joints. Mild central and b ilateral foraminal stenosis. Lobulated cystic mass in the RIGHT thyroid measures 2.0 cm. Prior ultrasound demonstrated predominant cystic mass. MR/MR cervical spin wo con* [id number] IMPRESSION: 1. Status post anterior cervical fusion with interbody spacers at C5-C7. 2. Osteophytic ridging at C5 and C6 resulting in mild central and bilateral fo raminal stenosis. Slightly greater cord contact at the C5-6 level. 3. No fracture.
[2020-01-10] MEDS: HYDROcodone-acetaminophen 10-325 mg Tablet 1 TAB PO ×2 (10:47→16:00)
--- NOTE | 2020-01-10 11:10 | PM.PN ---
Subjective Subjective: Interval history: Crissy reports that she has some left leg numbness and weakness. Left arm is still painful. She reports difficulty swallowing. She has had headaches. She reports increased blood pressure at times along with anxiety. Consult was reviewed. Despite severe weakness in the legs she reports she is still been able to ambulate to the bathroom with a limp. Medications: Reviewed: Yes Vitals/I&O/Wt Last Vital Signs Temp 98.6 F 01/10/20 08:00 Pulse 78 01/10/20 08:00 Resp 16 01/10/20 08:35 BP 157/84 01/10/20 08:00 Pulse Ox 98 01/10/20 08:00 01/09/20 01/10/20 01/10/20 22:59 06:59 14:59 Intake Total 250 / 250 Balance 250 / 250 Weight last 48 hrs Weight 129.274 kg Physical Exam Narrative: EXAM NARRATIVE: General exam no apparent distress Cardiovascular regular rate and rhythm without murmur Lungs clear Abdomen is soft obese nontender Extremities no cyanosis clubbing or edema. Neurologic: Decreased sensation subjective to the left lower extremity as well as significantly diminished strength. Left upper extremity strength seems intact. No facial asymmetry. Speech is normal. Data : 01/10/20 05:45 01/10/20 05:45 A&P Assessment and plan (1) Post-operative pain: Continue current as needed medications. Status: Acute (2) Paresthesia: To the left lower extremity. Etiology unknown. Status: Acute (3) Difficulty swallowing: Likely postoperative. Status: Acute Qualifiers: Dysphagia type: unspecified Qualified Code(s): R13.10 - Dysphagia, unspecified (4) Generalized weakness: Status: Chronic (5) Headache: Acute CT head negative Status: Acute Qualifiers: Headache type: unspecified Headache chronicity pattern: acute headache Intractability: intractable Qualified Code(s): R51 - Headache (6) S/P cervical spinal fusion: 01/08/20 Status: Acute (7) Sleep apnea: Status: Chronic Qualifiers: Sleep apnea type: obstructive Qualified Code(s): G47.33 - Obstructive sleep apnea (adult) (pediatric) (8) Generalized anxiety disorder: Status: Chronic Additional A&P Information Patient is obviously anxious, which can contribute to many of her symptoms. However, she does have predominant left-sided symptoms associated with left lower extremity weakness and numbness which she reports is new. She reports this started somewhat prior to her discharge from the hospital but worsened at home. Secondary to headache, significant elevated blood pressures, upper and lower left sided symptoms and some concerns of difficulty swallowing we will obtain an MRI of her brain along with cervical spine. Ativan prior to the MRI Nodular thyroid gland identified on CT cervical spine. Check TSH. Consider outpatient ultrasound. Speech therapy evaluation. Continue OT and PT eval's Further plans per neurosurgery SCDs for DVT prophylaxis Attestations Medical Necessity Statement*: As per primary Coding Level of Care Code Acute Lithographic Plate Maker Apprentice for Chg Fwd Diagnoses Post-operative pain G89.18 Paresthesia R20.2 Difficulty swallowing R13.10 Dysphagia type: unspecified Generalized weakness R53.1 Headache R51 Headache type: unspecified Headache chronicity pattern: acute headache Intractability: intractable S/P cervical spinal fusion Z98.1 Sleep apnea G47.33 Sleep apnea type: obstructive Generalized anxiety disorder F41.1
[2020-01-10 11:35] LABS: Thyroid Stimulating Hormone 6.66 uIU/mL (0.27-4.20)
[2020-01-10] MEDS: LORazepam 2 mg/mL INJ 1 mL 1 MG IVP (13:45)
--- NOTE | 2020-01-10 15:07 | PC.NURSE ---
To MRI Patient to MRI via stretcher at 1345.
--- NOTE | 2020-01-10 17:52 | PC.NURSE ---
discharge nurse recieved telephone order from Dr. Collazo to give dose of PRN Hydrocodone at this time prior to discharge. Patient instructed on follow up appointments, and medications, as well as post op care. Patient verbalized understanding.
--- NOTE | 2020-01-10 18:27 | PC.NURSE ---
Discharge patient taken to family vehicle at this time via wheelchair
--- NOTE | 2020-01-10 18:27 | PC.SLP ---
PRODUCT SAFETY ADMINISTRATOR spoke with the pt just before discharge. Handout provided that explained what one might expect after ACDF, in terms of swallowing. Pt's questions answered.
--- NOTE | 2020-01-11 10:42 | PC.SOCIAL ---
Post D/C note: Followed up with [facility] who states they cannot accept patient d/t staffing at this time. Faxed patient's second choice, [facility]. Will follow up if they can accept.
== END 2020-01-10 18:28 | disposition home or self-care (01) ==
LOC: ER 23:25 → MEDSURG 01-10 00:23
PROVIDERS: Emergency Medicine; Admitting Provider Specialist; PCP Nurse Practitioner Family; Visit Provider Specialist
DX: G89.18 Other acute postprocedural pain (principal); Z98.1 Arthrodesis status; R20.2 Paresthesia of skin; R13.10 Dysphagia, unspecified; R53.1 Weakness; R51 Headache; G47.33 Obstructive sleep apnea (adult) (pediatric); F41.1 Generalized anxiety disorder; F33.9 Major depressive disorder, recurrent, unspecified; E55.9 Vitamin D deficiency, unspecified; Z82.49 Family history of ischemic heart disease and other diseases of the circulatory system; Z83.3 Family history of diabetes mellitus; Z87.891 Personal history of nicotine dependence
CPT/HCPCS: 12345; 36415; 70450; 70551; 71045; 72125; 72141; 80048; 80053; 84443; 84484; 85025; 93005; 94660; 96360; 96361; 96374; 96375; 97116; 97161; 97165; 99284; 99285; G0378; J1170; J2060; J2405

== ENCOUNTER 2020-01-25 07:57 | Outpatient (CLI) | payer MEDICAID, SELFPAY ==
--- NOTE | 2020-01-25 08:00 | XR_ITS ---
WS: [id number] CERVICAL SPINE TECHNIQUE: 3 views of the cervical spine CLINICAL INFORMATION: cervical fusion/fixation COMPARISON: FINDINGS: Straightening of the normal cervical lordosis. Slight anterolisthesis C3 on C4. Anterior interbody ce rvical fusion C5-C7 with interbody fusion grafts. Hardware appears in good position. XR/XR cervical spine 3V* [id number] IMPRESSION: Satisfactory early postoperative ACDF C5-C7.
== END 2020-01-25 07:58 | disposition home or self-care (01) ==
LOC: RADWPI 08:00
PROVIDERS: Family Provider Nurse Practitioner Family; PCP Nurse Practitioner Family; Visit Provider Licensed Practical Nurse
DX: Z98.1 Arthrodesis status (principal); M43.22 Fusion of spine, cervical region
CPT/HCPCS: 72040

== ENCOUNTER 2020-02-07 08:43 | Outpatient (CLI) | payer MEDICAID, SELFPAY ==
--- NOTE | 2020-02-07 09:02 | XR_ITS ---
WS: [id number] CERVICAL SPINE TECHNIQUE: 3 views of the cervical spine CLINICAL INFORMATION: S/P Cervical Spinal Fusion COMPARISON: January 25, 2020 FINDINGS: Straightening of the normal cervical lordosis with slight reversal. Anterior interbody cervical fusio n C5-C7. Normal prevertebral soft tissues. Moderate facet arthropathy throughout the cervical spine. XR/XR cervical spine 3V* [id number] IMPRESSION: 1. Straightening with slight reversal normal cervical lordosis. 2. Anterior cervical fusion with interbody fusion C5-C7 appears stable.
== END 2020-02-07 08:44 | disposition home or self-care (01) ==
LOC: RADWPI 08:45
PROVIDERS: Family Provider Nurse Practitioner Family; PCP Nurse Practitioner Family; Visit Provider Licensed Practical Nurse
DX: Z98.1 Arthrodesis status (principal)
CPT/HCPCS: 72040

== ENCOUNTER → 2020-03-12 12:02 | Outpatient (BNVA) | payer MEDICAID, SELFPAY | PROVIDERS: PCP Nurse Practitioner Family; Visit Provider Licensed Practical Nurse | DX: Z98.1 Arthrodesis status (principal); Z98.890 Other specified postprocedural states | CPT/HCPCS: 99213 ==

== ENCOUNTER 2020-03-13 15:22 | Emergency (ER) | payer MEDICAID, SELFPAY ==
[2020-03-13 15:24] VITALS: BP 142/78; PULSE 75; RESP 16; TEMP 37; O2SAT 96; BMI 39.0
--- NOTE | 2020-03-13 15:31 | US_ITS ---
WS: [id number] ULTRASOUND ABDOMEN CLINICAL INFORMATION: Abdominal Pain COMPARISON: None. FINDINGS: Technically limited examination due to bowel gas. Liver Size: Hepatomegaly Craniocaudal length: 19.3 cm. Echogenicity: Coarse Surface nodularity: None. Mass (size and location): None. Bile ducts Intrahepatic ducts: Normal. Common bile duct diameter: 0.3 cm. Gallbladder Normal. Gallstones: None. Gallbladder sludge: None. Gallbladder wall thickening: None. Pericholecystic fluid: None. Sonographic Bolaños sign: Absent. Pancreas Normal as visualized. Spleen not well visualized Splenomegaly: None. Craniocaudal length: 11.5 cm. Right kidney: Normal. Hydronephrosis: None. Size: 11.5 cm x 5.9 cm x 5.6 cm Left kidney: Not well visualized Hydronephrosis: None. Size: 11.6 cm x 6.3 cm x 5.7 cm. Abdominal aorta and IVC Visualized portions are normal. Ascites: None. US/US abdomen complete* [id number] IMPRESSION: 1. Hepatomegaly with diffuse fatty infiltration. 2. Normal gallbladder. 3. Left kidney and spleen not well visualized due to bowel gas. 4. No hydronephrosis in right kidney.
[2020-03-13 15:32] VITALS: BP 135/76; RESP 18; O2SAT 97
--- NOTE | 2020-03-13 15:35 | ED_ITS ---
HPI - Abdominal Pain General: Chief Complaint: Abdominal Pain Stated Complaint: ABD PAIN Time Seen by Provider: 03/13/20 15:26 Source: patient Mode of arrival: EMS Limitations: no limitations History of Present Illness: HPI narrative: Crissy is a 50-year-old female who comes in complaining of upper abdominal pain. States her pain is in the upper abdomen and radiates along both sides of her lower ribs. It also goes through to her back. Patient has nauseousness with this but has not vomited. She describes the pain as sharp and stabbing. Patient denies anything similar to this in the past. Patient is unaware of anything made her symptoms better or worse and because of the continued pain she came here to the ER. She did not try anything for this prior to arrival. States the pain is mild at this time. Associated Symptoms: Reports nausea; Denies chills, coffee ground emesis, constipation, GI cramping, diarrhea, dysuria, fever(s), heartburn, hematochezia, hematuria, hematemesis, melena, syncope and vomiting Review of Systems Const: Denies: fever(s), chills, body aches, fatigue, malaise or diaphoresis Eyes: Denies: change in vision, blurry vision, photophobia, eye discomfort, eye discharge or eye redness ENMT: Denies: throat pain, odynophagia, hoarseness, swelling of lips/tongue, ear or mastoid pain, ear discharge, change in hearing or nasal discharge Card: Denies: chest pain, palpitations, irregular heart rhythm, edema, lightheadedness, syncope, pre-syncope, dyspnea on exertion or orthopnea Resp: Denies: dyspnea, productive cough, non-productive cough, wheezing, hemoptysis or chest congestion GI: Reports: abdominal pain and nausea; Denies: vomiting, hematemesis, coffee ground emesis, heartburn, diarrhea, constipation, GI cramping, hematochezia or melena : Denies: flank pain, dysuria, urinary frequency, urinary urgency or hematuria Musc: Denies: neck pain, back pain, extremity pain, extremity swelling, joint pain, joint swelling, joint redness, joint warmth or joint stiffness Skin/Breast: Denies: rash, pruritus, erythema or skin tenderness Neuro: Denies: headache(s), numbness in extremities, weakness in extremities, sensory changes, lack of coordination, difficulty walking, dizziness, vertigo, confusion, Slurred speech present or seizure-like activity David/Lymph: Denies: easy bruising, easy bleeding, petechiae, purpura or enlarged lymph nodes All/Imm: Denies: urticaria, throat swelling, tongue swelling, facial swelling or acute wheezing PFSH ED PFSH: Medical History Chronic sinusitis Deviated septum Fatty liver Generalized anxiety disorder Hyperlipemia not on meds due to gi symptoms Major depressive disorder, recurrent, moderate Obesity Post-operative state Right thyroid nodule Sleep apnea autopap Vitamin D deficiency Surgical History H/O arthroscopy right ankle H/O removal of cyst ovary History of appendectomy History of hysterectomy partial S/P cervical spinal fusion 01/08/2020 Dr. Joo Collazo: C5-C6, C6-C7 ACDFF Family History Father Hypertension Heart attack Mother Heart attack Brother Asthma Social History Smoking and tobacco status: former smoker Alcohol intake: never Household members: children Marital status: Current occupational status: unemployed History of recent travel: No Kellen/Religious: Yazdanism Physical Exam Const: COMMON NORMALS: no acute distress, patient oriented x3, no limitations, healthy appearing and well nourished GENERAL APPEARANCE: cooperative, well kempt and well developed HENMT: COMMON NORMALS: normocephalic, atraumatic, external ears normal, EAC's normal and Normal external nose present HEAD & SCALP: normal to inspection, normocephalic and atraumatic FACE & SINUS: normal facial exam and face symmetric NOSE: Normal external nose present and Normal nares present EXTERNAL EAR: Yes external ears normal EXTERNAL AUDITORY CANAL: EAC's normal MOUTH: Normal oral and palatal mucosa present, lip normal and tongue normal Eye: COMMON NORMALS: Equal, round and reactive pupils present and conjunctivae normal GENERAL EYE: appearance normal, both eyes and all related structures ALIGNMENT: Yes alignment normal PERIORBITAL: periorbital findings normal EYELID: eyelids normal CONJUNCTIVA: Yes conjunctivae normal SCLERA: sclerae normal PUPIL: Yes Equal, round and reactive pupils present Neck/C-Spine: COMMON NORMALS: full ROM, no lymphadenopathy, supple, no meningeal signs and no JVD GENERAL: Yes normal visual inspection and Yes trachea midline Chest: COMMONS NORMALS: normal inspection of the chest and normal palpation of entire chest wall Resp: COMMON NORMALS: normal respiratory effort, No retractions, No use of accessory muscles and clear to auscultation bilaterally EFFORT & INSPECTION: Yes able to speak in complete sentences and Yes symmetric chest movement AUSCULTATION: clear to auscultation bilaterally, no crackles, no rales, no rhonchi and no wheezes Cardio: COMMON NORMALS: no JVD, regular rate, regular rhythm, S1 normal heart sound present and S2 normal heart sound present RATE: regular rate RHYTHM: regular rhythm HEART SOUNDS: S1 normal heart sound present, S2 normal heart sound present, no click, no gallops, no murmurs, no rubs and abnormal split S2 GI: COMMON NORMALS: Soft to palpation and No hepatosplenomegaly present PALPATION: Yes Soft to palpation, No Tenderness to palpation present (GI), No Guarding due to palpation present (GI), No Rigid due to palpation, Yes No hepatosplenomegaly present, No Hernia present, No Palpable mass present and No Pulsatile mass present : COMMON NORMALS: Yes no CVA tenderness BLADDER/KIDNEY EXAM: Yes no CVA tenderness EXTERNAL FEMALE EXAM: No Hernia present Back/Pelvis: COMMON NORMALS: no CVA tenderness, thoracic and lumbar spine normal to inspection, no thoracic nor lumbar tenderness and thoraco-lumbar ROM normal Extremity: COMMON NORMALS: normal to inspection, full ROM, capillary refill normal, no joint enlargement, no clubbing, cyanosis or edema and no calf tenderness Neuro: COMMON NORMALS: patient oriented x3, CN's II-XII intact bilaterally, moves all extremities, no focal motor deficits and no sensory deficits noted MENINGEAL SIGNS: Yes no meningeal signs SPEECH: speech normal Psych: COMMON NORMALS: mental status grossly normal, Normal thought process present, cooperative, normal affect, speech normal and activity/motor behavior normal APPEARANCE: Yes well kempt SPEECH: Yes normal speech THOUGHT PROCESS: Normal thought process present Skin: COMMON NORMALS: no rashes or lesions noted, turgor normal, no jaundice, no petechiae and no mottling GENERAL SKIN EXAM: no rashes or lesions noted and turgor normal Course Vital Signs: Vital signs: Vital Signs Temperature 97.8 F 03/13/20 18:51 Pulse Rate 67 03/13/20 18:51 Respiratory Rate 18 03/13/20 18:51 Blood Pressure 155/77 03/13/20 18:51 Pulse Oximetry 96 03/13/20 16:07 MDM - Abdominal Pain MDM Narrative: Medical decision making narrative: Patient has had no pain since she was given fentanyl by EMS. This is more than had enough chance to wear off. The patient denies any chest pain or shortness of breath. Her EKGs were somewhat suspicious of in the anterior precordial leads but she had old EKGs that looked similar and this can also be caused by hypokalemia which once corrected did go back to normal. Patient has a heart score of 3 and is okay for discharge. She does agree to follow-up with her doctor for recheck. I will also refer the patient to Dr. Goodwin for recheck. He may want to perform an outpatient EGD or HIDA scan to better test her gallbladder. Patient understands all my directions and agrees to return here should her symptoms change or worsen. Lab Data: Attestation: I reviewed the patient's lab results. Labs: Lab Results 03/13/20 03/13/20 03/13/20 Range/Units 15:30 15:30 15:30 WBC 6.7 (4.0-10.0) 10^3/ uL RBC 5.20 (4.1-5.3) 10^6/u L Hgb 16.1 H (11.5-15.3) g/dL Hct 47.5 H (37.0-47.0) % MCV 91.3 (81-99) fL MCH 31.0 (28.0-34.0) pg MCHC 33.9 (30.0-36.0) g/dL RDW 12.0 L (12.1-15.1) % Plt Count 272 (130-400) 10^3/c mm MPV 11.0 H (7.4-10.4) fL Neut % (Auto) 65.9 % Lymph % (Auto) 25.0 % [place] % (Auto) 7.0 % Eos % (Auto) 0.9 % Baso % (Auto) 0.9 % Neut # (Auto) 4.43 (1.8-7.7) 10^3/u L Lymph # (Auto) 1.7 (0.8-4.8) 10^3/u L [place] # (Auto) 0.5 (0.2-0.9) 10^3/u L Eos # (Auto) 0.1 (0.0-0.8) 10^3/u L Baso # (Auto) 0.1 (0.0-0.1) 10^3/u L Nucleated RBC % (a uto) 0 % Nucleated RBCs # 0.0 /100WBC Sodium 138 (136-145) mmol/L Potassium 3.3 L (3.5-5.1) mmol/L Chloride 100 (98-107) mmol/L Carbon Dioxide 24 (22-29) mmol/L Anion Gap 17.3 (5-19) BUN 14 (6-20) mg/dL Creatinine 0.9 (0.5-0.9) mg/dL GFR Calculation 66.5 L (90-130) mL/min Glucose 84 (65-115) mg/dL Calculated Osmolal ity 281 L (285-295) mOsm/k g Calcium 9.2 (8.5-10.5) mg/dL Magnesium (1.7-2.3) mg/dL Total Bilirubin 0.4 (0.15-1.2) mg/dL AST 23 (0-32) U/L ALT 38 H (0-33) U/L Alkaline Phosphata se 45 (35-105) IU/L Troponin T Baselin e (0-10) ng/L Troponin T 120 Min [place] (0-10) ng/L Delta Troponin T (0-10) ABS# Total Protein 7.3 (6.6-8.7) g/dL Albumin 4.2 (3.5-5.2) g/dL Globulin 3.1 (1.3-4.6) g/dL Lipase 30 (13-60) U/L Urine Color (Yellow) Urine Appearance (CLEAR) Urine pH (5-7) Ur Specific Gravit y (1.005-1.030) Urine Protein (Negative) Urine Glucose (UA) (Normal) Urine Ketones (Negative) Urine Blood (Negative) Urine Nitrate (Negative) Urine Bilirubin (Negative) Urine Urobilinogen (Negative) mg/dL Ur Leukocyte Patsy ase (Negative) H. pylori IgG Anti body Negative (Negative) 03/13/20 03/13/20 03/13/20 Range/Units 15:30 15:30 15:38 WBC (4.0-10.0) 10^3/ uL RBC (4.1-5.3) 10^6/u L Hgb (11.5-15.3) g/dL Hct (37.0-47.0) % MCV (81-99) fL MCH (28.0-34.0) pg MCHC (30.0-36.0) g/dL RDW (12.1-15.1) % Plt Count (130-400) 10^3/c mm MPV (7.4-10.4) fL Neut % (Auto) % Lymph % (Auto) % [place] % (Auto) % Eos % (Auto) % Baso % (Auto) % Neut # (Auto) (1.8-7.7) 10^3/u L Lymph # (Auto) (0.8-4.8) 10^3/u L [place] # (Auto) (0.2-0.9) 10^3/u L Eos # (Auto) (0.0-0.8) 10^3/u L Baso # (Auto) (0.0-0.1) 10^3/u L Nucleated RBC % (a uto) % Nucleated RBCs # /100WBC Sodium (136-145) mmol/L Potassium (3.5-5.1) mmol/L Chloride (98-107) mmol/L Carbon Dioxide (22-29) mmol/L Anion Gap (5-19) BUN (6-20) mg/dL Creatinine (0.5-0.9) mg/dL GFR Calculation (90-130) mL/min Glucose (65-115) mg/dL Calculated Osmolal ity (285-295) mOsm/k g Calcium (8.5-10.5) mg/dL Magnesium 1.9 (1.7-2.3) mg/dL Total Bilirubin (0.15-1.2) mg/dL AST (0-32) U/L ALT (0-33) U/L Alkaline Phosphata se (35-105) IU/L Troponin T Baselin e 6 (0-10) ng/L Troponin T 120 Min [place] (0-10) ng/L Delta Troponin T (0-10) ABS# Total Protein (6.6-8.7) g/dL Albumin (3.5-5.2) g/dL Globulin (1.3-4.6) g/dL Lipase (13-60) U/L Urine Color Yellow (Yellow) Urine Appearance Clear (CLEAR) Urine pH 5.0 (5-7) Ur Specific Gravit y 1.015 (1.005-1.030) Urine Protein Neg (Negative) Urine Glucose (UA) Norm (Normal) Urine Ketones 2+ H (Negative) Urine Blood Neg (Negative) Urine Nitrate Negative (Negative) Urine Bilirubin Neg (Negative) Urine Urobilinogen Norm (Negative) mg/dL Ur Leukocyte Patsy ase Negative (Negative) H. pylori IgG Anti body (Negative) 03/13/20 Range/Units 17:29 WBC (4.0-10.0) 10^3/ uL RBC (4.1-5.3) 10^6/u L Hgb (11.5-15.3) g/dL Hct (37.0-47.0) % MCV (81-99) fL MCH (28.0-34.0) pg MCHC (30.0-36.0) g/dL RDW (12.1-15.1) % Plt Count (130-400) 10^3/c mm MPV (7.4-10.4) fL Neut % (Auto) % Lymph % (Auto) % [place] % (Auto) % Eos % (Auto) % Baso % (Auto) % Neut # (Auto) (1.8-7.7) 10^3/u L Lymph # (Auto) (0.8-4.8) 10^3/u L [place] # (Auto) (0.2-0.9) 10^3/u L Eos # (Auto) (0.0-0.8) 10^3/u L Baso # (Auto) (0.0-0.1) 10^3/u L Nucleated RBC % (a uto) % Nucleated RBCs # /100WBC Sodium (136-145) mmol/L Potassium (3.5-5.1) mmol/L Chloride (98-107) mmol/L Carbon Dioxide (22-29) mmol/L Anion Gap (5-19) BUN (6-20) mg/dL Creatinine (0.5-0.9) mg/dL GFR Calculation (90-130) mL/min Glucose (65-115) mg/dL Calculated Osmolal ity (285-295) mOsm/k g Calcium (8.5-10.5) mg/dL Magnesium (1.7-2.3) mg/dL Total Bilirubin (0.15-1.2) mg/dL AST (0-32) U/L ALT (0-33) U/L Alkaline Phosphata se (35-105) IU/L Troponin T Baselin e (0-10) ng/L Troponin T 120 Min [place] 6.00 (0-10) ng/L Delta Troponin T 0 (0-10) ABS# Total Protein (6.6-8.7) g/dL Albumin (3.5-5.2) g/dL Globulin (1.3-4.6) g/dL Lipase (13-60) U/L Urine Color (Yellow) Urine Appearance (CLEAR) Urine pH (5-7) Ur Specific Gravit y (1.005-1.030) Urine Protein (Negative) Urine Glucose (UA) (Normal) Urine Ketones (Negative) Urine Blood (Negative) Urine Nitrate (Negative) Urine Bilirubin (Negative) Urine Urobilinogen (Negative) mg/dL Ur Leukocyte Patsy ase (Negative) H. pylori IgG Anti body (Negative) Imaging Data ^: US: Radiologist's impression: [place] [address] Ultrasound Report Signed Patient: Crissy Alexis Unit #: [id number] : 1970 Age/Sex: 50 / F ADM Date: 03/13/20 Loc: ER Room/Bed: Attending Dr: Ordering Provider/Ordering MD: Agnieszka Conrad DO Date of Service: 03/13/20 Procedure(s): US abdomen complete* [id number] Accession Number(s): [id number] Report Number: [id number] WS: [id number] ULTRASOUND ABDOMEN CLINICAL INFORMATION: Abdominal Pain COMPARISON: None. FINDINGS: Technically limited examination due to bowel gas. Liver Size: Hepatomegaly Craniocaudal length: 19.3 cm. Echogenicity: Coarse Surface nodularity: None. Mass (size and location): None. Bile ducts Intrahepatic ducts: Normal. Common bile duct diameter: 0.3 cm. Gallbladder Normal. Gallstones: None. Gallbladder sludge: None. Gallbladder wall thickening: None. Pericholecystic fluid: None. Sonographic Bolaños sign: Absent. Pancreas Normal as visualized. Spleen not well visualized Splenomegaly: None. Craniocaudal length: 11.5 cm. Right kidney: Normal. Hydronephrosis: None. Size: 11.5 cm x 5.9 cm x 5.6 cm Left kidney: Not well visualized Hydronephrosis: None. Size: 11.6 cm x 6.3 cm x 5.7 cm. Abdominal aorta and IVC Visualized portions are normal. Ascites: None. US/US abdomen complete* [id number] IMPRESSION: 1. Hepatomegaly with diffuse fatty infiltration. 2. Normal gallbladder. 3. Left kidney and spleen not well visualized due to bowel gas. 4. No hydronephrosis in right kidney. Dictated By: Jordi Ricks MD Signed By: Jordi Ricks MD Signed Date/Time: 03/13/201651 DD/ 1649 EKG Data ^: EKG 1: Attestation: I personally reviewed and interpreted this EKG as follows: EKG interpretation date: 03/13/20 EKG interpretation time: 16:45 Interpretation: Normal sinus rhythm at 65 beats a minute, nonspecific ST and T wave changes in anterior precordial leads similar to previous. EKG 2: Attestation: I personally reviewed and interpreted this EKG as follows: EKG interpretation date: 03/13/20 EKG interpretation time: 18:03 Interpretation: Normal sinus rhythm at 67 beats a minute, nonspecific ST-T wave changes. Unchanged from previous. Discharge Plan Discharge Patient Disposition: Home Clinical Impression: Abdominal pain Qualifiers: Abdominal location: upper abdomen, unspecified Qualified Code(s): R10.10 - Upper abdominal pain, unspecified Condition: Stable Prescriptions: New Protonix 40 mg tablet,delayed release (DR/EC) 40 mg PO DAILY 28 Days RF: 0 Zofran 4 mg tablet 4 mg PO Q6H PRN (Reason: nausea and vomiting) Qty: 20 RF: 0 No Action baclofen 20 mg tablet 20 mg PO BID PRN (Reason: unknown) RF: 0 amitriptyline 10 mg tablet 10 mg PO DAILY Qty: 30 RF: 0 gabapentin 300 mg capsule 300 mg PO TID Qty: 90 RF: 3 cholecalciferol (vitamin D3) [Vitamin D3] 125 mcg (5,000 unit) Tablet 125 mcg PO DAILY RF: 0 Klonopin 1 mg tablet 1 mg PO BID PRN (Reason: unknown) RF: 0 ketoconazole 2 % shampoo See Rx Instructions .ROUTE .COMPLEX RF: 0 [place] 5-325 mg Tablet 1 tab PO TID PRN (Reason: Pain) RF: 0 Tylenol Extra Strength 500 mg Tablet 1,000 mg PO PRN RF: 0 hydrochlorothiazide 12.5 mg Tablet 12.5 mg PO DAILY RF: 0 Discharge Orders: Discharge Order (Routine); Ordered 03/13/20 Ordered By: Agnieszka Conrad Referrals: Navi Goodwin MD [Physician] - 1-3 days Discharge Diet: Advance as tolerated and Clear Liquid Discharge Activity: Increase activity as tolerated Patient Instructions: Abdominal Pain (ED) Activity Restrictions/Additional Instructions: Please return to the ER immediately for any of the signs or symptoms listed on your discharge instruction sheets, worsening/changing of your symptoms, you are not getting better as quickly as expected, or for ANY other cause or concerns. Follow a clear liquid diet and advance it as you can tolerate. Return to the ER for chest pain, return of abdominal pain, nausea/vomiting, or for any other cause for concern. Be certain to follow-up with her primary care physician but also follow-up with Dr. Goodwin for further evaluation and care. Discharge Date/Time: 03/13/20 18:54 Coding Level of Care Code ED Peoplesoft Administrator for Cristianeg Fwd Exam Comprehensive
[2020-03-13 15:38] LABS: Basophils # 0.1 10^3/uL (0.0-0.1); Basophils % 0.9 %; Eosinophils # 0.1 10^3/uL (0.0-0.8); Eosinophils % 0.9 %; Hematocrit 47.5 % (37.0-47.0); Hemoglobin 16.1 g/dL (11.5-15.3); Lymphocytes # 1.7 10^3/uL (0.8-4.8); Mean Corpuscular HGB Conc 33.9 g/dL (30.0-36.0); Mean Corpuscular Volume 91.3 fL (81-99); Monocytes # 0.5 10^3/uL (0.2-0.9); Neutrophils # 4.43 10^3/uL (1.8-7.7); Neutrophils % 65.9 %; Nucleated Red Blood Cells % 0 %; Platelet Count 272 10^3/cmm (130-400); White Blood Count 6.7 10^3/uL (4.0-10.0)
[2020-03-13 15:48] LABS: Add Urine Microscopic? NO
[2020-03-13 15:58] LABS: Bilirubin Urine Neg (Negative); Blood Urine Neg (Negative); Glucose Urine UA Norm (Normal); Ketones Urine 2+ (Negative); Leukocyte Esterase Urine Negative (Negative); Nitrate Urine Negative (Negative); Protein Urine Neg (Negative); Specific Gravity, Urine 1.015 (1.005-1.030); Urine Appearance Clear (CLEAR); Urine Color Yellow (Yellow); Urobilinogen Urine Norm (Negative)
[2020-03-13] MEDS: lidocaine 2% viscous 15 ML, aluminum-mag hydrox-simethicon 30 ML, sucralfate oral liq 1 GM PO (16:04)
[2020-03-13 16:07] VITALS: BP 145/71; PULSE 74; RESP 18; O2SAT 96
[2020-03-13 16:15] LABS: H. Pylori IgG Antibody Negative (Negative)
[2020-03-13 16:16] LABS: Alanine Aminotransferase 38 U/L (0-33); Albumin Level 4.2 g/dL (3.5-5.2); Alkaline Phosphatase 45 IU/L (35-105); Anion Gap 17.3 (5-19); Aspartate Amino Transferase 23 U/L (0-32); Blood Urea Nitrogen 14 mg/dL (6-20); Calcium 9.2 mg/dL (8.5-10.5); Carbon Dioxide 24 mmol/L (22-29); Chloride 100 mmol/L (98-107); Globulin 3.1 g/dL (1.3-4.6); Glomerular Filtration Rate 66.5 mL/min (90-130); Glucose 84 mg/dL (65-115); Lipase 30 U/L (13-60); Osmolality Calculated 281 mOsm/kg (285-295); Potassium 3.3 mmol/L (3.5-5.1); Sodium 138 mmol/L (136-145); Total Bilirubin 0.4 mg/dL (0.15-1.2); Total Protein 7.3 g/dL (6.6-8.7)
--- NOTE | 2020-03-13 16:29 | ECG_ITS ---
[facility] Test Date: 2020-03-13 Pat Name: Crissy Alexis Department: Room: Gender: Female Practice Architect: : 1970 Requested By: Agnieszka Miller Order Number: [id number] Fany MD: Lavonne Sherman M.D. Measurements Intervals [place] Rate: 65 P: 20 AK: 147 QRS: 61 QRSD: 92 T: 22 QT: 403 QTc: 419 Interpretive Statements SINUS RHYTHM T wave changes suggestive of anterior wall ischemia Compared to ECG 01/10/2020 06:04:07 Myocardial infarct finding no longer present Electronically Signed On 03-13-2020 19:59:41 CDT by Lavonne Sherman M.D. [id number]
[2020-03-13 16:50] LABS: Magnesium 1.9 mg/dL (1.7-2.3)
[2020-03-13 16:52] LABS: Troponin(5th) Baseline 6 ng/L (0-10)
--- NOTE | 2020-03-13 16:53 | PC.NURSE ---
Dr Conrad change Potassium drip to Potassium po.
[2020-03-13] MEDS: potassium chloride ER 10 mEq Tablet 40 MEQ PO (16:58)
[2020-03-13 17:53] LABS: Troponin 5 2HR Delta 0 ABS# (0-10)
--- NOTE | 2020-03-13 18:29 | ECG_ITS ---
[facility] Test Date: 2020-03-13 Pat Name: Crissy Alexis Department: Room: Gender: Female Specialist Wound Care: : 1970 Requested By: Agnieszka Miller Order Number: [id number] Fany MD: Lavonne Sherman M.D. Measurements Intervals [place] Rate: 67 P: 5 GA: 141 QRS: 62 QRSD: 90 T: 30 QT: 400 QTc: 423 Interpretive Statements SINUS RHYTHM Compared to ECG 01/10/2020 06:04:07 Myocardial infarct finding no longer present Electronically Signed On 03-13-2020 20:14:14 CDT by Lavonne Sherman M.D. [id number]
[2020-03-13 18:51] VITALS: BP 155/77; PULSE 67; RESP 18; TEMP 36.6
== END 2020-03-13 18:54 | disposition home or self-care (01) ==
PROVIDERS: Emergency Provider Emergency Medicine
DX: R10.10 Upper abdominal pain, unspecified (principal); E78.5 Hyperlipidemia, unspecified; Z87.891 Personal history of nicotine dependence
CPT/HCPCS: 12345; 36415; 76700; 80053; 81003; 83690; 83735; 84484; 85025; 86677; 93005; 96365; 99283; 99284

== ENCOUNTER 2020-04-22 09:37 | Outpatient (CLI) | payer MEDICAID, SELFPAY ==
--- NOTE | 2020-04-22 09:55 | NM_ITS ---
WS: [id number] NUCLEAR MEDICINE HIDA SCAN CLINICAL INFORMATION: RUQ PAIN TECHNIQUE: Following intravenous administration of 8.0 mCi of technetium 99m mebrofenin, images of th e abdomen were obtained over the course of 60 minutes. Next, gallbladder ejection fraction was determ ined by obtaining preprandial and one-hour postprandial images of the gallbladder following oral ginette stion of Ensure. COMPARISON: Ultrasound March 13, 2020 FINDINGS: Hepatomegaly. Normal hepatic uptake at 5 minutes. The gallbladder is visualized by 20 minutes. No giselle dence of acute cholecystitis. Normal common bile duct and small bowel activity. No evidence of choled ocholithiasis. Normal gallbladder ejection fraction 91%. No evidence of chronic cholecystitis. NM/NM hepatobiliary w phar* [id number] IMPRESSION: 1. No evidence of acute or chronic cholecystitis. 2. Normal gallbladder ejection fraction 91% within normal limits. 3. Hepatomegaly.
== END 2020-04-22 09:38 | disposition home or self-care (01) ==
LOC: NM 09:39
PROVIDERS: Visit Provider Physician Assistant
DX: R10.13 Epigastric pain (principal); R10.11 Right upper quadrant pain; R16.0 Hepatomegaly, not elsewhere classified
CPT/HCPCS: 78227; A9537

== ENCOUNTER → 2020-05-01 10:21 | Outpatient (BNVA) | payer MEDICAID, SELFPAY | PROVIDERS: PCP Physician Assistant; Visit Provider Licensed Practical Nurse | DX: M50.020 Cervical disc disorder with myelopathy, mid-cervical region, unspecified level (principal); Z98.1 Arthrodesis status | CPT/HCPCS: 99213 ==

== ENCOUNTER → 2020-05-15 11:04 | Outpatient (BNVA) | payer MEDICAID, SELFPAY | PROVIDERS: PCP Physician Assistant; Visit Provider Licensed Practical Nurse | DX: R20.0 Anesthesia of skin (principal); Z98.1 Arthrodesis status; M54.6 Pain in thoracic spine | CPT/HCPCS: 99213 ==

== ENCOUNTER 2020-05-23 08:48 | Outpatient (CLI) | payer MEDICAID, SELFPAY ==
--- NOTE | 2020-05-23 09:00 | CT_ITS ---
WS: [id number] CT CERVICAL SPINE TECHNIQUE: Noncontrast CT of the cervical spine with coronal and sagittal reformatted images. CLINICAL INFORMATION: Z98.1 - Arthrodesis status COMPARISON: MRI February 28, [address] January 09, 2020 DLP: 1754.[address] scans at [facility] use at least one of these dose optimization techniques: automat ed exposure control; mA and/or kV adjustment per patient size (includes targeted exams where dose is matched to clinical indication); or iterative reconstruction. FINDINGS: Straightening of the normal cervical lordosis. Prior postoperative changes ACDF C5-C7. Hardware appea rs in good position. No evidence of screw loosening. No evidence of bony bridging beyond the confines of the interbody fusion grafts. C2-C3: Normal. C3-C4: Normal. C4-C5: No significant disc bulging. Osteophytic ridging. Spinal canal and foramen are patent. C5-C6: Postoperative changes ACDF. Mild facet arthropathy. Spinal canal and foramen are patent. C6-C7: Prior postoperative changes ACDF. Spinal canal and foramen are patent. C7-T1: No significant disc bulging. Spinal canal and foramen are patent. Multinodular thyroid with dominant partially visualized right thyroid nodule measuring 2.5 CM. Smalle r bilateral thyroid nodules. Visualized posterior nasopharynx: Normal. Prevertebral soft tissues: Normal. CT/CT cervical spin wo con* [id number] IMPRESSION: 1. Straightening of the normal cervical lordosis with prior postoperative vazquez ges ACDF C5-C7. 2. No evidence of hardware loosening. No evidence of bony bridging beyond the confines of the interbody fusion grafts. 3. No significant spinal canal or foraminal narrowing. 4. Multinodular thyroid with dominant right nodule measuring 2.5 CM. This can be followed up with ultrasound on an elective basis. This is similar to the fede or examinations.
--- NOTE | 2020-05-23 09:22 | XR_ITS ---
WS: [id number] THORACIC SPINE TECHNIQUE: 3 views of the thoracic spine CLINICAL INFORMATION: PAIN IN THORACIC SPINE COMPARISON: None. FINDINGS: Mild thoracic curve convex right. Mild thoracic kyphosis. Disc space heights vertebral body heights a re well preserved. No acute appearing compression fractures. Minimal anterior wedging in the mid thor acic spine. Prior postoperative changes in the cervical spine described on the cervical spine CT. XR/XR thoracic spine 3V* [id number] IMPRESSION: Mild thoracic curve convex right with mild thoracic kyphosis. No acute thoracic spine findings.
== END 2020-05-23 08:49 | disposition home or self-care (01) ==
LOC: RADWPI 08:52
PROVIDERS: PCP Physician Assistant; Visit Provider Licensed Practical Nurse
DX: Z98.1 Arthrodesis status (principal); M50.020 Cervical disc disorder with myelopathy, mid-cervical region, unspecified level; M54.6 Pain in thoracic spine; E04.2 Nontoxic multinodular goiter
CPT/HCPCS: 72072; 72125

== ENCOUNTER 2020-05-23 12:39 | Outpatient (CLI) | payer BC, MEDICAID, SELFPAY | END 2020-05-23 12:40 | disposition home or self-care (01) | LOC: ENDOOACUTE 03-16 12:19 | PROVIDERS: PCP Physician Assistant; Visit Provider Internal Medicine | DX: E04.1 Nontoxic single thyroid nodule (principal); I10 Essential (primary) hypertension; R23.2 Flushing; Z80.8 Family history of malignant neoplasm of other organs or systems | CPT/HCPCS: 99204 ==

== ENCOUNTER 2020-05-23 13:36 | Outpatient (CLI) | payer MEDICAID, SELFPAY ==
[2020-05-23 14:51] LABS: Free T4 Free Thyroxine 0.88 ng/dL (0.82-1.77); Thyroid Stimulating Hormone 1.65 uIU/mL (0.27-4.20)
[2020-05-24 09:43] LABS: T3 Total 125 ng/dL (76-181)
== END 2020-05-23 13:37 | disposition home or self-care (01) ==
LOC: LAB 13:43
PROVIDERS: PCP Physician Assistant; Visit Provider Internal Medicine
DX: E04.9 Nontoxic goiter, unspecified (principal); I10 Essential (primary) hypertension; R23.2 Flushing
CPT/HCPCS: 84439; 84443; 84480

== ENCOUNTER → 2020-06-04 13:53 | Outpatient (BNVA) | payer MEDICAID, SELFPAY | PROVIDERS: PCP Physician Assistant; Visit Provider Licensed Practical Nurse | DX: M54.6 Pain in thoracic spine (principal); R20.0 Anesthesia of skin; R51.9 Headache, unspecified; Z98.1 Arthrodesis status | CPT/HCPCS: 99213 ==

== ENCOUNTER 2020-06-24 10:59 | Outpatient (CLI) | payer MEDICAID, SELFPAY | END 2020-06-24 11:00 | disposition home or self-care (01) | LOC: LAB 11:01 | PROVIDERS: PCP Physician Assistant; Visit Provider Internal Medicine | DX: E04.9 Nontoxic goiter, unspecified (principal); R23.2 Flushing; I10 Essential (primary) hypertension | CPT/HCPCS: 82384 ==

== ENCOUNTER → 2020-07-22 10:33 | Outpatient (BNVA) | payer BC, MEDICAID, SELFPAY | PROVIDERS: PCP Physician Assistant; Referring Provider Internal Medicine; Visit Provider Orthopaedic Surgery | DX: M25.512 Pain in left shoulder (principal) | CPT/HCPCS: 73030 ==

== ENCOUNTER → 2020-08-06 15:30 | Outpatient (BNVA) | payer BC, MEDICAID, SELFPAY | PROVIDERS: PCP Physician Assistant; Referring Provider Specialist; Visit Provider Orthopaedic Surgery | DX: M54.9 Dorsalgia, unspecified (principal); Z98.1 Arthrodesis status | CPT/HCPCS: 72050; 72072; 72114 ==

== ENCOUNTER → 2020-08-12 09:03 | Outpatient (BNVA) | payer BC, MEDICAID, SELFPAY | PROVIDERS: PCP Physician Assistant; Visit Provider Specialist | DX: R20.0 Anesthesia of skin (principal); M25.512 Pain in left shoulder; Z98.1 Arthrodesis status; Z87.891 Personal history of nicotine dependence | CPT/HCPCS: 95886; 95908 ==

== ENCOUNTER 2020-09-05 14:54 | Outpatient (CLI) | payer BC, MEDICAID, SELFPAY ==
--- NOTE | 2020-09-05 15:15 | MR_ITS ---
WS: [id number] MRI THORACIC SPINE without contrast. HISTORY: M54.9 - Dorsalgia, unspecified COMPARISON: No similar studies. TECHNIQUE: Multiplanar sequences are performed in sagittal and axial planes. Very slight increase in the normal thoracic kyphosis. Very slight RIGHT convex curvature of the thora cic spine. No marrow edema or fracture. Normal appearance of the thoracic cord. No syrinx, cord atrop hy or enlargement. Disc spaces are mildly narrowed. Fusion hardware noted in the cervical spine from C5 through C7. T1-2: Normal. T2-3: Very slight narrowing of the RIGHT foramen due to osteophytes and facet disease. T3-4: Mild RIGHT foraminal narrowing due to facet disease. T4-5: Normal. T5-6: Normal. T6-7: Normal. T7-8: Normal. T8-9: Normal. T9-10: Mild bilateral facet joint arthritis. Mild LEFT foraminal narrowing. T10-11: Bilateral facet joint arthritis. No stenosis. T11-12: Normal. Cortical cyst RIGHT kidney. MR/MR thoracic spin wo con* [id number] IMPRESSION: 1. Mild RIGHT convex curvature thoracic spine. 2. No high-grade central or foraminal stenoses or disc protrusions. 3. Mild facet arthritis throughout as described above.
== END 2020-09-05 14:55 | disposition home or self-care (01) ==
LOC: RADSHAW 14:56
PROVIDERS: PCP Physician Assistant; Visit Provider Orthopaedic Surgery
DX: M47.814 Spondylosis without myelopathy or radiculopathy, thoracic region (principal)
CPT/HCPCS: 72146

== ENCOUNTER 2020-09-07 16:06 | Emergency (ER) | payer BC, MEDICAID, SELFPAY ==
[2020-09-07 16:16] VITALS: BP 157/103; PULSE 73; RESP 14; TEMP 36.5; O2SAT 97; BMI 36.0
--- NOTE | 2020-09-07 16:31 | CTR_ITS ---
PROCEDURE INFORMATION: Exam: CT Head Without Contrast Exam date and time: 09/07/2020 4:49 PM Age: 50 years old Clinical indication: Dizziness and other: Left arm numbness, dizzy TECHNIQUE: Imaging protocol: Computed tomography of the head without contrast. Total images: 189 Radiation optimization: All CT scans at this facility use at least one of these dose optimization techniques: automated exposure control; mA and/or kV adjustment per patient size (includes targeted exams where dose is matched to clinical indication); or iterative reconstruction. COMPARISON: CT head wo con* [id number] 01/09/2020 10:14 PM RADIATION DOSE METRICS: Total DLP (mGy-cm): 836.11 FINDINGS: Brain: Normal. No hemorrhage. Unremarkable white matter. No mass effect. Cerebral ventricles: No ventriculomegaly. Bones/joints: Unremarkable. No acute fracture. Paranasal sinuses: Small inclusion cyst sphenoid sinus. No visible evidence of active paranasal sinus disease. Mastoid air cells: Visualized mastoid air cells are well aerated. Soft tissues: Unremarkable. CT/CT head wo con* [id number] IMPRESSION: No evidence of active or acute intracranial pathologic process, hemorrhage, or trauma. Radiation Dose CTDIVOL = (mGy): DLP = 836.11 (mGy-cm)
--- NOTE | 2020-09-07 16:31 | XRR_ITS ---
PROCEDURE INFORMATION: Exam: XR Chest Exam date and time: 09/07/2020 4:49 PM Age: 50 years old Clinical indication: Other: Lt arm numbness, dizzy, tachycardia; Additional info: SOB and cp TECHNIQUE: Imaging protocol: XR of the chest Views: 1 view. Total images: 1 COMPARISON: CR XR chest 1V portable [id number] 01/09/2020 11:31 PM FINDINGS: Lungs: Unremarkable. No consolidation. Pleural spaces: Unremarkable. No pleural effusion. No pneumothorax. Heart/Mediastinum: Unremarkable. No cardiomegaly. Bones/joints: Previous cervical fusion. Scoliosis of the spine. XR/XR chest 1V portable [id number] IMPRESSION: Nonacute.
--- NOTE | 2020-09-07 16:32 | ECG_ITS ---
[facility] Test Date: 2020-09-07 Pat Name: Crissy Alexis Department: Room: Gender: Female Package Wrapper: TINO HILTONB: 1970 Requested By: Sang Anderson Order Number: [id number] Fany MD: LEATHA ENCARNACION Measurements Intervals [place] Rate: 108 P: 66 ID: 135 QRS: 74 QRSD: 86 T: 14 QT: 356 QTc: 479 Interpretive Statements SINUS TACHYCARDIA NONSPECIFIC ST & T-WAVE ABNORMALITY ABNORMAL RHYTHM ECG Compared to ECG 03/13/2020 18:03:21 T-wave abnormality now present Sinus rhythm no longer present Electronically Signed On 09-07-2020 18:44:02 PORTABLE GRINDING MACHINE OPERATOR by LEATHA ENCARNACION [id number]
[2020-09-07 17:14] LABS: Basophils # 0.1 10^3/uL (0.0-0.1); Eosinophils % 0.6 %; Hematocrit 47.9 % (37.0-47.0); Hemoglobin 16.2 g/dL (11.5-15.3); Lymphocytes # 1.7 10^3/uL (0.8-4.8); Lymphocytes % 27.3 %; Mean Corpuscular HGB Conc 33.8 g/dL (30.0-36.0); Mean Corpuscular Hemoglobin 31.9 pg (28.0-34.0); Mean Corpuscular Volume 94.3 fL (81-99); Mean Platelet Volume 10.7 fL (7.4-10.4); Monocytes # 0.4 10^3/uL (0.2-0.9); Monocytes % 7.1 %; Neutrophils # 3.94 10^3/uL (1.8-7.7); Neutrophils % 63.8 %; Nucleated Red Blood Cells % 0 %; Platelet Count 228 10^3/cmm (130-400); Red Blood Count 5.08 10^6/uL (4.1-5.3); Red Cell Distribution Width 11.7 % (12.1-15.1); White Blood Count 6.2 10^3/uL (4.0-10.0)
[2020-09-07 17:15] VITALS: BP 118/78; BP 130/82; BP 134/88; PULSE 74; PULSE 75; PULSE 96
[2020-09-07 17:58] LABS: Alanine Aminotransferase 20 U/L (0-33); Albumin Level 4.2 g/dL (3.5-5.2); Alkaline Phosphatase 45 IU/L (35-105); Aspartate Amino Transferase 15 U/L (0-32); Blood Urea Nitrogen 9 mg/dL (6-20); Calcium 9.4 mg/dL (8.5-10.5); Carbon Dioxide 24 mmol/L (22-29); Chloride 101 mmol/L (98-107); Globulin 2.8 g/dL (1.3-4.6); Glomerular Filtration Rate 66.5 mL/min (90-130); Glucose 86 mg/dL (65-115); Osmolality Calculated 284 mOsm/kg (285-295); Sodium 138 mmol/L (136-145); Total Bilirubin 0.5 mg/dL (0.15-1.2)
[2020-09-07 18:00] LABS: Troponin(5th) Baseline 6 ng/L (0-10)
--- NOTE | 2020-09-07 18:32 | ECG_ITS ---
[facility] Test Date: 2020-09-07 Pat Name: Crissy Alexis Department: Room: Gender: Female Director: : 1970 Requested By: Sang Anderson Order Number: [id number] Reading MD: LEATHA ENCARNACION Measurements Intervals [place] Rate: 65 P: 2 MD: 151 QRS: 46 QRSD: 92 T: 14 QT: 404 QTc: 423 Interpretive Statements SINUS RHYTHM NONSPECIFIC T-WAVE ABNORMALITY Compared to ECG 09/07/2020 16:26:53 Sinus tachycardia no longer present T-wave abnormality still present Electronically Signed On 09-08-2020 17:46:37 ADMINISTRATOR SOCIAL WELFARE by LEATHA ENCARNACION [id number]
[2020-09-07] MEDS: sodium chloride 0.9% 1,000 ML 999 ML IV (18:45)
[2020-09-07 18:46] VITALS: BP 108/70; PULSE 66; RESP 18; O2SAT 98
--- NOTE | 2020-09-07 18:48 | ED_ITS ---
HPI - Arrhythmia/Palpitations General: Chief Complaint: Arrhythmia/Palpitations Stated Complaint: heart is racing Time Seen by Provider: 09/07/20 16:39 Source: patient Mode of arrival: ambulatory Limitations: no limitations History of Present Illness: HPI narrative: This is a 50 year old female who presents to the ED with a 6 week history of palpitations and an elevated heart r ate. She has a pulse oximeter at home and noticed that her heart rate was elevated although she did not state what the rate is. She also complains of chest pressure. She has dizziness especially when she stands. She has seen her PCP for this and is scheduled to receive a holter monitor. She is here to be evaluated for this. MD complaint: rapid heart beat and palpitations Onset (ago): week(s) (6) Duration: intermittent Severity: moderate Context: occurred during rest Associated symptoms: Reports pre-syncope; Deny anxiety, cough, diaphoresis, muscle cramps, nausea, paresthesias, sense of impending doom, short of breath, syncope or vomiting Review of Systems General: Reports: 10 or more systems reviewed and unremarkable except in HPI and below Const: Denies: diaphoresis Eyes: Denies: change in vision or blurry vision ENMT: Denies: throat pain, enlarged tonsils, odynophagia, hoarseness, mouth pain or swelling of lips/tongue Card: Reports: pre-syncope; Denies: syncope Resp: Denies: dyspnea, productive cough or non-productive cough GI: Denies: nausea or vomiting : Denies: flank pain, difficulty voiding, dysuria, urinary frequency, urinary urgency or urinary hesitancy Musc: Denies: muscle cramps Skin/Breast: Denies: rash, pruritus or erythema Neuro: Denies: headache(s), numbness in extremities or weakness in extremities Psych: Denies: anxiety Endo: Denies: polyuria, polydipsia or tired all the time PFS ED PFSH: Medical History Chronic sinusitis Deviated septum Fatty liver Generalized anxiety disorder Headache Hyperlipemia not on meds due to gi symptoms Left arm numbness Major depressive disorder, recurrent, moderate Obesity Post-operative state Right thyroid nodule Sleep apnea autopap Thoracic back pain Vitamin D deficiency Surgical History H/O arthroscopy right ankle H/O removal of cyst ovary History of appendectomy History of hysterectomy partial S/P cervical spinal fusion 01/08/2020 Dr. Joo Collazo: C5-C6, C6-C7 ACDFF Family History Father Hypertension Heart attack Mother Heart attack Brother Asthma Social History Smoking and tobacco status: former smoker Alcohol intake: never Household members: children Marital status: Current occupational status: unemployed Kellen/Mormon: Sabianist Physical Exam Const: COMMON NORMALS: no acute distress, average body habitus, patient oriented x3, no limitations, healthy appearing, alert and well nourished HENMT: COMMON NORMALS: normocephalic, atraumatic and moist oral mucous membranes HEAD & SCALP: normocephalic and atraumatic Neck/C-Spine: COMMON NORMALS: no meningeal signs and no JVD Chest: COMMONS NORMALS: normal inspection of the chest and normal palpation of entire chest wall Resp: COMMON NORMALS: normal respiratory effort, No retractions, No use of accessory muscles, clear to auscultation bilaterally and percussion normal AUSCULTATION: clear to auscultation bilaterally PERCUSSION: percussion normal Cardio: COMMON NORMALS: no JVD, regular rate, regular rhythm, S1 normal heart sound present, S2 normal heart sound present, No gallops present (Cardio), No clicks present (Cardio), No murmurs present (Cardio), No rub (Cardio) and Peripheral pulses 2+ throughout RATE: regular rate RHYTHM: regular rhythm HEART SOUNDS: S1 normal heart sound present and S2 normal heart sound present PERIPHERAL PULSES: Peripheral pulses 2+ throughout GI: COMMON NORMALS: Normal to inspection, nondistended, normoactive bowel sounds present, Soft to palpation, non-tender, No hepatosplenomegaly present, no masses and no bruits PALPATION: Yes Soft to palpation and Yes No hepatosplenomegaly present Extremity: COMMON NORMALS: normal to inspection, full ROM, capillary refill normal, no calf tenderness and no pedal edema Neuro: COMMON NORMALS: patient oriented x3 SENSORIUM/ORIENTATION: Yes alert MENINGEAL SIGNS: Yes no meningeal signs Skin: COMMON NORMALS: no rashes or lesions noted, no wounds, turgor normal, no jaundice, no petechiae and no mottling GENERAL SKIN EXAM: no rashes or lesions noted and turgor normal Course Reevaluation(s): Reevaluation #1: Discussed her lab and imaging findings with her, as well as her orthostatic vital signs. She is discharged home with no new orders. She is scheduled to receive a holter monitor and is advised to keep her appointment for this. She voiced understanding and all questions answered. Time: 18:49 Vital Signs: Vital signs: Vital Signs Temperature 97.7 F 09/07/20 16:16 Pulse Rate 66 09/07/20 19:39 Respiratory Rate 16 09/07/20 19:39 Blood Pressure 124/73 09/07/20 19:39 Pulse Oximetry 98 09/07/20 19:39 MDM - Arrhythmia/Palpitations MDM Narrative: Medical decision making narrative: 50 year old female with a 6 week history of palpitations, chest pressure, and dizziness. Evaluation in the ED showed her heart rate increased by more than 20 beats when she went from lying to standing, which is suggestive of orthostasis. She has negative HS troponin x 2. She is already scheduled to get a holter monitor due to her symptoms. She is discharged home with no orders. She was given IV fluids in the ED. Medical Records: Attestation: I reviewed the patient's medical records. Lab Data: Attestation: I reviewed the patient's lab results. Labs: Lab Results 09/07/20 09/07/20 09/07/20 Range/Units 17:00 17:00 17:00 WBC 6.2 (4.0-10.0) 10^3/ uL RBC 5.08 (4.1-5.3) 10^6/u L Hgb 16.2 H (11.5-15.3) g/dL Hct 47.9 H (37.0-47.0) % MCV 94.3 (81-99) fL MCH 31.9 (28.0-34.0) pg MCHC 33.8 (30.0-36.0) g/dL RDW 11.7 L (12.1-15.1) % Plt Count 228 (130-400) 10^3/c mm MPV 10.7 H (7.4-10.4) fL Neut % (Auto) 63.8 % Lymph % (Auto) 27.3 % Mcclain % (Auto) 7.1 % Eos % (Auto) 0.6 % Baso % (Auto) 1.0 % Neut # (Auto) 3.94 (1.8-7.7) 10^3/u L Lymph # (Auto) 1.7 (0.8-4.8) 10^3/u L Mcclain # (Auto) 0.4 (0.2-0.9) 10^3/u L Eos # (Auto) 0.0 (0.0-0.8) 10^3/u L Baso # (Auto) 0.1 (0.0-0.1) 10^3/u L Nucleated RBC % (a uto) 0 % Nucleated RBCs # 0.0 /100WBC Sodium 138 (136-145) mmol/L Potassium 4.0 (3.5-5.1) mmol/L Chloride 101 (98-107) mmol/L Carbon Dioxide 24 (22-29) mmol/L Anion Gap 17.0 (5-19) BUN 9 (6-20) mg/dL Creatinine 0.9 (0.5-0.9) mg/dL GFR Calculation 66.5 L (90-130) mL/min Glucose 86 (65-115) mg/dL Calculated Osmolal ity 284 L (285-295) mOsm/k g Calcium 9.4 (8.5-10.5) mg/dL Total Bilirubin 0.5 (0.15-1.2) mg/dL AST 15 (0-32) U/L ALT 20 (0-33) U/L Alkaline Phosphata se 45 (35-105) IU/L Troponin T Baselin e 6 (0-10) ng/L Troponin T 120 Min three affiliated (0-10) ng/L Delta Troponin T (0-10) ABS# Total Protein 7.0 (6.6-8.7) g/dL Albumin 4.2 (3.5-5.2) g/dL Globulin 2.8 (1.3-4.6) g/dL 09/07/20 Range/Units 19:05 WBC (4.0-10.0) 10^3/ uL RBC (4.1-5.3) 10^6/u L Hgb (11.5-15.3) g/dL Hct (37.0-47.0) % MCV (81-99) fL MCH (28.0-34.0) pg MCHC (30.0-36.0) g/dL RDW (12.1-15.1) % Plt Count (130-400) 10^3/c mm MPV (7.4-10.4) fL Neut % (Auto) % Lymph % (Auto) % Mcclain % (Auto) % Eos % (Auto) % Baso % (Auto) % Neut # (Auto) (1.8-7.7) 10^3/u L Lymph # (Auto) (0.8-4.8) 10^3/u L Mcclain # (Auto) (0.2-0.9) 10^3/u L Eos # (Auto) (0.0-0.8) 10^3/u L Baso # (Auto) (0.0-0.1) 10^3/u L Nucleated RBC % (a uto) % Nucleated RBCs # /100WBC Sodium (136-145) mmol/L Potassium (3.5-5.1) mmol/L Chloride (98-107) mmol/L Carbon Dioxide (22-29) mmol/L Anion Gap (5-19) BUN (6-20) mg/dL Creatinine (0.5-0.9) mg/dL GFR Calculation (90-130) mL/min Glucose (65-115) mg/dL Calculated Osmolal ity (285-295) mOsm/k g Calcium (8.5-10.5) mg/dL Total Bilirubin (0.15-1.2) mg/dL AST (0-32) U/L ALT (0-33) U/L Alkaline Phosphata se (35-105) IU/L Troponin T Baselin e (0-10) ng/L Troponin T 120 Min three affiliated 6.00 (0-10) ng/L Delta Troponin T 0 (0-10) ABS# Total Protein (6.6-8.7) g/dL Albumin (3.5-5.2) g/dL Globulin (1.3-4.6) g/dL Imaging Data^: CXR: Attestation: I personally reviewed and interpreted this imaging study as follows: Radiologist's impression: [employer] [address] [place] [address]. [place] [address] XRay Report Signed Patient: Amina Alexis #: [id number] : 1970Acct#:[id number] Age/Sex: 50 / FADM Date: 09/07/20 Loc: ERRoom/Bed: Attending Dr: Ordering Provider/Ordering MD: Sang Anderson Date of Service: 09/07/20 Procedure(s): XR chest 1V portable [id number] Accession Number(s): [id number] Report Number: [id number] PROCEDURE INFORMATION: Exam: XR Chest Exam date and time: 09/07/2020 4:49 PM Age: 50 years old Clinical indication: Other: Lt arm numbness, dizzy, tachycardia; Additional info: SOB and cp TECHNIQUE: Imaging protocol: XR of the chest Views: 1 view. Total images: 1 COMPARISON: CR XR chest 1V portable [id number] 01/09/2020 11:31 PM FINDINGS: Lungs: Unremarkable. No consolidation. Pleural spaces: Unremarkable. No pleural effusion. No pneumothorax. Heart/Mediastinum: Unremarkable. No cardiomegaly. Bones/joints: Previous cervical fusion. Scoliosis of the spine. XR/XR chest 1V portable [id number] IMPRESSION: Nonacute. Dictated By:Kiran Linares Signed By:Bhavik Linares Date/Time:09/07/[address] Head: Attestation: I personally reviewed and interpreted this imaging study as follows: Radiologist's impression: [employer] [address] [place] [address]. [place] [address] CT Scan Report Signed Patient: Amina Alexis #: [id number] : 1970Acct#:[id number] Age/Sex: 50 / FADM Date: 09/07/20 Loc: ERRoom/Bed: Attending Dr: Ordering Provider/Ordering MD: Sang Anderson Date of Service: 09/07/20 Procedure(s): CT head wo con* [id number] Accession Number(s): [id number] Report Number: [id number] PROCEDURE INFORMATION: Exam: CT Head Without Contrast Exam date and time: 09/07/2020 4:49 PM Age: 50 years old Clinical indication: Dizziness and other: Left arm numbness, dizzy TECHNIQUE: Imaging protocol: Computed tomography of the head without contrast. Total images: 189 Radiation optimization: All CT scans at this facility use at least one of these dose optimization techniques: automated exposure control; mA and/or kV adjustment per patient size (includes targeted exams where dose is matched to clinical indication); or iterative reconstruction. COMPARISON: CT head wo con* [id number] 01/09/2020 10:14 PM RADIATION DOSE METRICS: Total DLP (mGy-cm): 836.11 FINDINGS: Brain: Normal. No hemorrhage. Unremarkable white matter. No mass effect. Cerebral ventricles: No ventriculomegaly. Bones/joints: Unremarkable. No acute fracture. Paranasal sinuses: Small inclusion cyst sphenoid sinus. No visible evidence of active paranasal sinus disease. Mastoid air cells: Visualized mastoid air cells are well aerated. Soft tissues: Unremarkable. CT/CT head wo con* [id number] IMPRESSION: No evidence of active or acute intracranial pathologic process, hemorrhage, or trauma. Radiation Dose CTDIVOL = (mGy): DLP = 836.11 (mGy-cm) Dictated By:Kiran Linares Signed By:Kiran LinaresSisal Date/Time:09/07/201735 DD/ 34 EKG Data^: EKG 1: Attestation: I personally reviewed and interpreted this EKG as follows: EKG interpretation date: 09/07/20 EKG interpretation time: 16:26 Prior EKG tracings: not available for review Interpretation: NSR HR 83 beats per minute normal axis No ST changes. Other EKG comments: Chest X-Ray 09/07/20 16:31 IMPRESSION: Nonacute. Head CT 09/07/20 16:31 IMPRESSION: No evidence of active or acute intracranial pathologic process, hemorrhage, or trauma. Radiation Dose CTDIVOL = (mGy): DLP = 836.11 (mGy-cm) EKG 2: Attestation: I personally reviewed and interpreted this EKG as follows: EKG interpretation date: 09/07/20 EKG interpretation time: 16:27 Prior EKG tracings: available for review Interpretation: sinus tachycardia HR 108 bpm normal axis no st changes. This is an ekg done while she was standing as her symptoms worsen on standing. Other EKG comments: Chest X-Ray 09/07/20 16:31 IMPRESSION: Nonacute. Head CT 09/07/20 16:31 IMPRESSION: No evidence of active or acute intracranial pathologic process, hemorrhage, or trauma. Radiation Dose CTDIVOL = (mGy): DLP = 836.11 (mGy-cm) EKG 3: Attestation: I personally reviewed and interpreted this EKG as follows: EKG interpretation date: 09/07/20 EKG interpretation time: 19:13 Prior EKG tracings: available for review Interpretation: NSR HR 65 bpm normal axis no ST changes Other EKG comments: Chest X-Ray 09/07/20 16:31 IMPRESSION: Nonacute. Head CT 09/07/20 16:31 IMPRESSION: No evidence of active or acute intracranial pathologic process, hemorrhage, or trauma. Radiation Dose CTDIVOL = (mGy): DLP = 836.11 (mGy-cm) Discharge Plan Discharge Patient Disposition: Home Clinical Impression: Orthostasis, Palpitation Condition: Stable Prescriptions: Continued baclofen 20 mg tablet 10 mg PO TID PRN (Reason: unknown) RF: 0 multivitamin Tablet 1 tab PO DAILY RF: 0 simvastatin 40 mg Tablet 40 mg PO DAILY@20 RF: 0 omeprazole 20 mg Capsule,Delayed Release(Dr/Ec) 20 mg PO DAILY PRN (Reason: Acid Reflux) RF: 0 fluticasone propionate 50 mcg/actuation [place],Suspension 2 spray INTRANASAL DAILY PRN (Reason: Allergy Symptoms) RF: 0 Vitamin D3 125 mcg (5,000 unit) Tablet 10,000 unit PO DAILY RF: 0 Narcan 4 mg/actuation spray,non-aerosol See Rx Instructions .ROUTE .COMPLEX RF: 0 ketoconazole 2 % shampoo See Rx Instructions .ROUTE .COMPLEX RF: 0 hydrocodone-acetaminophen [[place]] 5-325 mg Tablet 1.5 tab PO DAILY PRN (Reason: Pain) RF: 0 acetaminophen [Tylenol Extra Strength] 500 mg Tablet 1,000 mg PO PRN RF: 0 ondansetron HCl [Zofran] 4 mg tablet 4 mg PO Q6H PRN (Reason: nausea and vomiting) Qty: 20 RF: 0 No Action gabapentin 300 mg capsule See Rx Instructions .ROUTE .COMPLEX 30 Days Qty: 90 RF: 2 Klonopin 1 mg tablet 2 mg PO DAILY PRN (Reason: anxiety) Qty: 60 RF: 2 Discharge Orders: Discharge ED (Routine); Ordered 09/07/20 Ordered By: Marco Vuong Referrals: Lexie Song PA-C [Primary Care Provider] - 1-3 days Discharge Diet: Usual diet Discharge Activity: Increase activity as tolerated Patient Instructions: Heart Palpitations Activity Restrictions/Additional Instructions: Return for any new or worsening symptoms. Follow-up with your primary care provider within 3 days. Get your Holter monitor as scheduled. Coding Level of Care Code ED Baggagemaster for Jayne Newman
[2020-09-07 19:00] VITALS: BP 118/68; PULSE 65; RESP 16; O2SAT 98
[2020-09-07 19:39] VITALS: BP 124/73; PULSE 66; RESP 16; O2SAT 98
[2020-09-07 20:02] LABS: Troponin 5 2HR Delta 0 ABS# (0-10)
== END 2020-09-07 19:40 | disposition home or self-care (01) ==
PROVIDERS: Physician Assistant; Emergency Provider Family Medicine; PCP Physician Assistant
DX: I95.1 Orthostatic hypotension (principal); R00.2 Palpitations; E78.5 Hyperlipidemia, unspecified; Z87.891 Personal history of nicotine dependence
CPT/HCPCS: 70450; 71045; 80053; 84484; 85025; 93005; 96360; 99283; J7030

== ENCOUNTER 2020-10-01 15:00 | Outpatient (CLI) | payer BC, MEDICAID, SELFPAY ==
--- NOTE | 2020-10-01 16:00 | MR_ITS ---
WS: [id number] MRI CERVICAL SPINE NONCONTRAST TECHNIQUE: Sagittal T1, T2 and STIR imaging. Axial T2, gradient, and fiesta imaging. CLINICAL INFORMATION: M48.02 - Spinal stenosis, cervical region COMPARISON: MRI February 28, [address] May 23, 2020 FINDINGS: Straightening of the normal cervical lordosis. Prior postoperative changes ACDF C5-C7. Cord signal ap pears normal. No high-grade central canal stenosis. Alignment is unchanged compared to the prior stud ies. C2-C3: Normal. C3-C4: Mild right and no significant left foraminal narrowing. Mild facet arthropathy. Spinal canal i s patent. C4-C5: Mild disc osteophyte complex endplate ridging. Mild left and no significant right foraminal na rrowing. Mild facet arthropathy. Spinal canal is patent. C5-C6: ACDF. Spinal canal and foramen are patent. Mild facet arthropathy. C6-C7: ACDF. Spinal canal is patent. Mild bilateral bony foraminal narrowing. Mild facet arthropathy. C7-T1: Mild right and no significant left foraminal narrowing. Spinal canal is patent Visualized brain stem structures: Normal. Prevertebral soft tissues: Normal. MR/MR cervical spin wo con* [id number] IMPRESSION: 1. Straightening of the normal cervical lordosis. No high-grade central canal stenosis. Cord signal is normal. 2. Prior ACDF C5-C7. Hardware appears unchanged. 3. Mild bony foraminal narrowing described above more prominent at bilateral C 6-7 and right C7-T1. 4. No significant interval changes from the prior studies. 5. Partially evaluated subcentimeter bilateral thyroid nodules largest measuri ng 5 to 6 mm.
== END 2020-10-01 15:01 | disposition home or self-care (01) ==
PROVIDERS: PCP Physician Assistant; Visit Provider Orthopaedic Surgery
DX: M48.02 Spinal stenosis, cervical region (principal); E04.2 Nontoxic multinodular goiter; Z98.1 Arthrodesis status
CPT/HCPCS: 72141

== ENCOUNTER → 2020-10-15 09:36 | Outpatient (BNVA) | payer BC, MEDICAID, SELFPAY | PROVIDERS: PCP Physician Assistant; Referring Provider Orthopaedic Surgery; Visit Provider Anesthesiology Pain Medicine | DX: G89.29 Other chronic pain (principal); M47.812 Spondylosis without myelopathy or radiculopathy, cervical region; M50.90 Cervical disc disorder, unspecified, unspecified cervical region; M25.512 Pain in left shoulder; M47.814 Spondylosis without myelopathy or radiculopathy, thoracic region; R51.9 Headache, unspecified; Z98.1 Arthrodesis status; Z79.891 Long term (current) use of opiate analgesic | CPT/HCPCS: 99205 ==

== ENCOUNTER → 2020-10-23 13:14 | Outpatient (BNVA) | payer BC, MEDICAID, SELFPAY | PROVIDERS: PCP Physician Assistant; Visit Provider Anesthesiology Pain Medicine | DX: G89.29 Other chronic pain (principal); M50.90 Cervical disc disorder, unspecified, unspecified cervical region; Z79.891 Long term (current) use of opiate analgesic | CPT/HCPCS: 62321; J1100 ==

== ENCOUNTER → 2020-11-05 10:33 | Outpatient (BNVA) | payer BC, MEDICAID, SELFPAY | PROVIDERS: PCP Physician Assistant; Visit Provider Anesthesiology Pain Medicine | DX: G89.29 Other chronic pain (principal); M47.812 Spondylosis without myelopathy or radiculopathy, cervical region; M50.90 Cervical disc disorder, unspecified, unspecified cervical region; M47.814 Spondylosis without myelopathy or radiculopathy, thoracic region; M25.512 Pain in left shoulder; R51.9 Headache, unspecified; Z98.1 Arthrodesis status; Z79.891 Long term (current) use of opiate analgesic | CPT/HCPCS: 99214 ==

== ENCOUNTER → 2020-11-18 12:55 | Outpatient (BNVA) | payer BC, MEDICAID, SELFPAY | PROVIDERS: PCP Physician Assistant; Visit Provider Anesthesiology Pain Medicine | DX: M47.812 Spondylosis without myelopathy or radiculopathy, cervical region (principal); Z79.891 Long term (current) use of opiate analgesic | CPT/HCPCS: 64490; 64491; 64492 ==

== ENCOUNTER → 2020-11-29 12:50 | Outpatient (BNVA) | payer BC, MEDICAID, SELFPAY | PROVIDERS: PCP Physician Assistant; Visit Provider Anesthesiology Pain Medicine | DX: M47.812 Spondylosis without myelopathy or radiculopathy, cervical region (principal); Z79.891 Long term (current) use of opiate analgesic | CPT/HCPCS: 64490; 64491; 64492; J3490 ==

== ENCOUNTER → 2020-12-31 10:16 | Outpatient (BNVA) | payer BC, MEDICAID, SELFPAY | PROVIDERS: PCP Physician Assistant; Visit Provider Anesthesiology Pain Medicine | DX: G89.29 Other chronic pain (principal); M67.912 Unspecified disorder of synovium and tendon, left shoulder; M47.814 Spondylosis without myelopathy or radiculopathy, thoracic region; M47.812 Spondylosis without myelopathy or radiculopathy, cervical region; M50.90 Cervical disc disorder, unspecified, unspecified cervical region; R51.9 Headache, unspecified; Z98.1 Arthrodesis status; Z87.891 Personal history of nicotine dependence | CPT/HCPCS: 99214 ==

== ENCOUNTER 2021-01-24 15:25 | Outpatient (CLI) | payer BC, MEDICAID, SELFPAY ==
--- NOTE | 2021-01-24 16:00 | MR_ITS ---
WS: [id number] MRI LUMBAR SPINE NONCONTRAST TECHNIQUE: Sagittal T1, T2 and STIR imaging. Axial T1 and T2 imaging. CLINICAL INFORMATION: M54.5 - Low back pain COMPARISON: None. FINDINGS: Mild lumbar curve. No acute compression. No high-grade central canal stenosis. Slight annular bulging L3-L4 and L4-L5. L1-L2: Normal. L2-L3: Mild annular bulging with a tiny left foraminal protrusion. Mild left and no significant right foraminal narrowing. Moderate facet arthropathy. Spinal canal is patent. L3-L4: Mild annular bulging with slight narrowing of the right subarticular recess. Tiny right forami nal protrusion with mild right and no significant left foraminal narrowing. Mild facet arthropathy. L4-L5: Mild annular bulging with slight effacement of ventral thecal sac. Slight impingement traversi ng left greater than right subarticular recess and traversing L5 nerve roots. Small right foraminal p rotrusion with a tiny annular tear. Mild right and no significant left foraminal narrowing. Moderate facet arthropathy. L5-S1: Tiny central shallow protrusion with slight contact of the right S1 nerve root. Mild facet art hropathy. Foramen are patent. Partially visualized right renal cysts Overall findings are similar to previous with slightly progressed annular bulging L4-5 with new annul ar tear MR/MR lumbar spine wo con* [id number] IMPRESSION: 1. Mild lumbar curve. No acute compression. No high-grade central canal stenos is. 2. Small left foraminal protrusion L2-3 with mild left foraminal narrowing. 3. Small right foraminal protrusion L3-4 with mild right foraminal narrowing. 4. Small right foraminal protrusion L4-5 with a tiny annular tear and mild rig ht foraminal narrowing. Slight impingement on the exiting right L4 nerve root. This is progressed compared to previous. 5. Tiny central right pericentral protrusion L5-S1 slightly impinges the right S1 nerve root. 6. Mild to moderate facet arthropathy L3-L4 and L4-L5.
== END 2021-01-24 15:26 | disposition home or self-care (01) ==
PROVIDERS: PCP Physician Assistant; Visit Provider Orthopaedic Surgery
DX: M47.816 Spondylosis without myelopathy or radiculopathy, lumbar region (principal); M51.27 Other intervertebral disc displacement, lumbosacral region; M51.26 Other intervertebral disc displacement, lumbar region
CPT/HCPCS: 72148

== ENCOUNTER 2021-01-24 15:34 | Outpatient (CLI) | payer BC, MEDICAID, SELFPAY ==
--- NOTE | 2021-01-24 16:45 | MR_ITS ---
WS: [id number] MRI LEFT SHOULDER NONCONTRAST TECHNIQUE: Sagittal T2, coronal T1, T2 and proton density imaging. Axial gradient PDE imaging. CLINICAL INFORMATION: M67.919 - Unspecified disorder of synovium and tendon, un... COMPARISON: None. FINDINGS: Moderate degenerative arthritis AC joint with hypertrophic changes. Moderate downsloping of the acrom ion with slight impingement on the underlying supraspinatus. Normal distal supraspinatus. Normal infr aspinatus. Normal teres minor. Subscapularis is normal. Normal intra-articular biceps tendon. Glenoid labrum appears grossly normal. Normal bone marrow signal within the glenoid and humeral head. Biceps labral anchor appears intact. MR/MR shoulder LT wo con* [id number] IMPRESSION: 1. Moderate degenerative arthritis at the AC joint with hypertrophic changes a nd moderate downsloping of the acromion. Slight subacromial spurring with impin gement on the distal supraspinatus. 2. Rotator cuff is intact. No acute rotator cuff tears. 3. Normal bone marrow signal in the humerus and glenoid. 4. Normal biceps tendon in the bicipital groove. Normal biceps labral anchor. 5. No other significant findings.
== END 2021-01-24 15:35 | disposition home or self-care (01) ==
LOC: RADSHAW 15:35
PROVIDERS: PCP Physician Assistant; Visit Provider Anesthesiology Pain Medicine
DX: M67.912 Unspecified disorder of synovium and tendon, left shoulder (principal); M19.012 Primary osteoarthritis, left shoulder
CPT/HCPCS: 73221

== ENCOUNTER → 2021-01-28 10:52 | Outpatient (BNVA) | payer BC, MEDICAID, SELFPAY | PROVIDERS: PCP Physician Assistant; Visit Provider Anesthesiology Pain Medicine | DX: G89.29 Other chronic pain (principal); M47.814 Spondylosis without myelopathy or radiculopathy, thoracic region; M47.816 Spondylosis without myelopathy or radiculopathy, lumbar region; M47.812 Spondylosis without myelopathy or radiculopathy, cervical region; M50.90 Cervical disc disorder, unspecified, unspecified cervical region; M25.512 Pain in left shoulder; R51.9 Headache, unspecified; R68.84 Jaw pain; Z98.1 Arthrodesis status | CPT/HCPCS: 99215 ==

== ENCOUNTER → 2021-02-13 08:04 | Outpatient (BNVA) | payer BC, MEDICAID, SELFPAY | PROVIDERS: PCP Physician Assistant; Referring Provider Orthopaedic Surgery; Visit Provider Specialist | DX: M25.512 Pain in left shoulder (principal) | CPT/HCPCS: 73030 ==

== ENCOUNTER → 2021-02-25 12:30 | Outpatient (BNVA) | payer BC, MEDICAID, SELFPAY | PROVIDERS: PCP Physician Assistant; Visit Provider Anesthesiology Pain Medicine | DX: M75.02 Adhesive capsulitis of left shoulder (principal); M25.512 Pain in left shoulder; Z87.891 Personal history of nicotine dependence | CPT/HCPCS: 20605; 77002; J1030; J3490 ==

== ENCOUNTER → 2021-03-12 09:49 | Outpatient (BNVA) | payer BC, MEDICAID, SELFPAY | PROVIDERS: PCP Physician Assistant; Visit Provider Anesthesiology Pain Medicine | DX: G89.29 Other chronic pain (principal); M47.812 Spondylosis without myelopathy or radiculopathy, cervical region; M50.90 Cervical disc disorder, unspecified, unspecified cervical region; M25.512 Pain in left shoulder; R68.84 Jaw pain; R51.9 Headache, unspecified; M47.814 Spondylosis without myelopathy or radiculopathy, thoracic region; M47.816 Spondylosis without myelopathy or radiculopathy, lumbar region; Z98.1 Arthrodesis status | CPT/HCPCS: 99214 ==

== ENCOUNTER → 2021-05-07 09:57 | Outpatient (BNVA) | payer BC, MEDICAID, SELFPAY | PROVIDERS: PCP Physician Assistant; Visit Provider Anesthesiology Pain Medicine | DX: G89.29 Other chronic pain (principal); M47.812 Spondylosis without myelopathy or radiculopathy, cervical region; M50.90 Cervical disc disorder, unspecified, unspecified cervical region; M25.512 Pain in left shoulder; M47.814 Spondylosis without myelopathy or radiculopathy, thoracic region; M47.816 Spondylosis without myelopathy or radiculopathy, lumbar region; M16.0 Bilateral primary osteoarthritis of hip; R51.9 Headache, unspecified; Z98.1 Arthrodesis status; Z87.891 Personal history of nicotine dependence | CPT/HCPCS: 99214 ==

== ENCOUNTER → 2021-05-15 11:26 | Outpatient (BNVA) | payer BC, MEDICAID, SELFPAY | PROVIDERS: PCP Physician Assistant; Visit Provider Registered Nurse | DX: Z79.899 Other long term (current) drug therapy (principal) | CPT/HCPCS: 36415; 80053; 82306; 82607; 84443; 85025 ==

== ENCOUNTER 2021-05-20 09:02 | Outpatient (CLI) | payer BC, MEDICAID, SELFPAY ==
--- NOTE | 2021-05-20 08:45 | XR_ITS ---
WS: [id number] RIGHT HIP HISTORY: M16.0 - Bilateral primary osteoarthritis of hip COMPARISON: None available. Right hip: No acute fracture or dislocation. There are mild sclerosis along the superior acetabulum. No osseous destruction. Mild sclerosis and narrowing involving the inferior RIGHT SI joint. XR/XR hip RT 2-3V wo/w pel* [id number] IMPRESSION: 1. No hip fracture. 2. Very mild RIGHT hip osteoarthritic changes.
== END 2021-05-20 09:03 | disposition home or self-care (01) ==
PROVIDERS: PCP Physician Assistant; Visit Provider Anesthesiology Pain Medicine
DX: M16.0 Bilateral primary osteoarthritis of hip (principal)
CPT/HCPCS: 73502

== ENCOUNTER → 2021-06-04 10:17 | Outpatient (BNVA) | payer BC, MEDICAID, SELFPAY | PROVIDERS: PCP Physician Assistant; Visit Provider Anesthesiology Pain Medicine | DX: G89.29 Other chronic pain (principal); M79.18 Myalgia, other site; M50.90 Cervical disc disorder, unspecified, unspecified cervical region; M47.812 Spondylosis without myelopathy or radiculopathy, cervical region; M25.512 Pain in left shoulder; M79.602 Pain in left arm; M47.814 Spondylosis without myelopathy or radiculopathy, thoracic region; M48.062 Spinal stenosis, lumbar region with neurogenic claudication; M47.816 Spondylosis without myelopathy or radiculopathy, lumbar region; R51.9 Headache, unspecified; M16.11 Unilateral primary osteoarthritis, right hip; Z98.1 Arthrodesis status | CPT/HCPCS: 20553; 99214 ==

== ENCOUNTER 2021-06-17 20:00 | Outpatient (CLI) | payer BC, MEDICAID, SELFPAY | END 2021-06-17 20:01 | disposition home or self-care (01) | LOC: SLEEP 06-18 07:48 | PROVIDERS: PCP Physician Assistant; Visit Provider Specialist | DX: G47.33 Obstructive sleep apnea (adult) (pediatric) (principal) | CPT/HCPCS: 95810 ==

== ENCOUNTER → 2021-09-02 13:09 | Outpatient (BNVA) | payer BC, MEDICAID, SELFPAY | PROVIDERS: PCP Physician Assistant; Visit Provider Anesthesiology Pain Medicine | DX: G89.29 Other chronic pain (principal); M48.062 Spinal stenosis, lumbar region with neurogenic claudication; M47.816 Spondylosis without myelopathy or radiculopathy, lumbar region; M47.814 Spondylosis without myelopathy or radiculopathy, thoracic region; M47.812 Spondylosis without myelopathy or radiculopathy, cervical region; M50.90 Cervical disc disorder, unspecified, unspecified cervical region; M25.512 Pain in left shoulder; M25.559 Pain in unspecified hip; R51.9 Headache, unspecified; Z98.1 Arthrodesis status; Z87.891 Personal history of nicotine dependence | CPT/HCPCS: 99214 ==